=== PATIENT | male | born 1940 | race Caucasian/White ===

== ENCOUNTER 2020-09-02 17:10 | Inpatient (IN) ==
--- NOTE | 2020-09-02 18:29 | Emergency Department Note ---
HPI General Chief complaint: Shortness of Breath/Dyspnea Stated complaint: weakness, anxiety, SOB Time Seen by Provider: 09/02/20 18:28 Source: EMS Mode of arrival: EMS Limitations: no limitations History of Present Illness HPI Narrative: Narrative: This patient presents by EMS with complaint of left hip pain. He reports to EMS multiple complaints, however to myself he is complaining of having difficulty walking due to left hip pain. He reports a few days ago, or maybe even more, he was in the restroom and turned. When he pivoted he felt pain in his left hip and has had difficulty walking since then. He is unable to identify a specific area of discomfort, only that he has pain throughout his left hip with trying to bear weight. He does live at home. He does have a caregiver, however his caregiver has not been able to come to his home due to being ill herself. He denies any numbness, tingling or weakness. He reports no other trauma. The patient does have some chronic shortness of breath and wears 5 L of oxygen at baseline. Related Data Allergies Allergy/AdvReac Type Severity Reaction Status Date / Time No Known Drug Allergies Allergy Verified 09/02/20 17:18 Review of Systems ROS ROS Narrative: Narrative: Pertinent positives and negatives as noted in HPI. All other systems reviewed and negative. [facility] Narrative Patient History Narrative: Narrative: Medical/Surgical/Family History All Active Problems (Updated 09/02/20 @ 23:14 by Stephany Hull PA-C) Congestive heart failure (Acute) Hypoxia (Acute) Hip pain, left (Acute) Social History Smoking Status: Never smoker Exam Narrative Narrative: Narrative: Vital signs noted General: No distress. Nontoxic-appearing. Skin: Warm. Dry. No rash. Normal color. Eyes: PERRL. EOMI. Mouth: Membranes dry Neck: Good ROM. No meningeal signs. Supple. Cardiovascular: Irregular rate. Respiratory: Tachypnea. Patient speaking in 3-4 word sentences. Decreased lung sounds in the left base with crackles bilaterally. Gastrointestinal: Abdomen soft. No tenderness. No distention. Normal bowel sounds. No rebound tenderness or guarding. Back: Normal inspection. No midline tenderness. Extremities: No tenderness. No swelling. No erythema. 2+ edema to lower extremities. Good peripheral pulses x 4. Generalized tenderness palpation of the left hip. Exam is limited due to body habitus Neurological: No focal neurological deficits observed. Alert. Oriented x 3 General Limitations: no limitations Course Course Course Narrative: I went over the patient's list of complaints in triage and during my interview he reports his only concern is his left hip pain and not being able to get around. X-ray of the left hip and lumbar spine reviewed by myself to be without acute changes. Patient is assisted in an attempt to ambulate and is unable to get up from bedside due to being weak and developing shortness of breath. O2 saturati ons drop into the 70s despite being on 5 L of oxygen. At that point a work-up for shortness of breath is initiated and labs are ordered Chest x-ray is reviewed by myself to be concerning for left pleural effusion as well as scattered infiltrates and fluid overload. EKG shows a sinus rhythm at 87. QRS complexes are wide and at irregular intervals. Appears to be second-degree type II block. Right bundle branch block. No prior EKG for comparison. proBNP is elevated. No prior labs for comparison. Patient medicated with 40 mg IV Lasix. In order of sublingual nitro and Nitropaste is also ordered for CHF. Patient is discussed with the hospitalist service regarding admission for congestive heart failure with hypoxia I did speak with the patient's caregiver Lizzy Moon. Her number for contact is [phone]. Vital Signs Vital signs: Vital Signs Temperature 98.0 F 09/02/20 17:12 Pulse Rate 120 H 09/02/20 17:12 Respiratory Rate 20 09/02/20 17:12 Blood Pressure 125/73 09/02/20 17:12 Pulse Oximetry (%) 96 09/02/20 17:12 Temperature 98.0 F 09/02/20 17:12 Pulse Rate 102 H 09/02/20 22:21 Respiratory Rate 20 09/02/20 17:12 Blood Pressure 136/73 09/02/20 22:16 Pulse Oximetry (%) 94 09/02/20 22:21 [facility] MDM Narrative Medical decision making narrative: Narrative: Lab Data Result diagrams: 09/02/20 20:03 09/02/20 20:03 Labs: Lab Results 09/02/20 09/02/20 09/02/20 Range/Units 20:03 20:03 20:03 WBC 9.1 (4.5-11.0) K/mcL RBC 3.77 L (4.50-5.90) M/mcL Hgb 10.6 L (13.5-16.5) g/dL Hct 34.6 L (41.0-55.0) % MCV 91.8 (80.0-100.0) fL MCH 28.1 (26.0-34.0) pg MCHC 30.6 L (31.0-36.0) g/dL RDW 14.5 (11.5-14.5) % Plt Count 249 (140-440) K/mcL MPV 9.8 (7.4-10.4) fL Neut % (Auto) 68.1 (38.0-78.0) % Lymph % (Auto) 20.5 (15.0-49.0) % [place] % (Auto) 8.3 (1.0-12.0) % Eos % (Auto) 2.4 (0.0-7.0) % Baso % (Auto) 0.7 (0.0-2.0) % Lymph # (Auto) 1.86 (1.50-4.80) K/mcL [place] # (Auto) 0.75 (0.10-0.90) K/mcL Eos # (Auto) 0.22 (0.00-0.70) K/mcL Baso # (Auto) 0.06 (0.00-0.20) K/mcL Absolute Neutrophils 6.20 (1.80-8.00) K/mcL ABG Methemoglobin 0.3 L (0.4-1.5) % VBG pH 7.43 H (7.32-7.42) U VBG pCO2 47.8 (41.0-51.0) mmHg VBG pO2 46.3 H (25.0-40.0) mmHg VBG HCO3 30.7 H (24.0-28.0) mmol/L VBG Total CO2 32.2 H (25.0-29.0) mmol/L VBG O2 Saturation 78.5 H (40.0-70.0) % VBG Base Excess 6 H (-2-3) VBG Lactic Acid (0.5-2.0) mmol/L Carboxyhemoglobin 5.4 H (0.0-1.5) % THgb Total Hemoglobin 10.7 L (13.5-16.5) gm/Dl Sodium 140 (133-145) mmol/L Potassium 4.0 (3.3-5.1) mmol/L Chloride 103 (96-108) mmol/L Carbon Dioxide 29 (22-30) mmol/L Anion Gap 8.0 (8.0-16.0) BUN 14 (8-23) mg/dL Creatinine 0.8 (0.7-1.2) mg/dL GFR Calculation 83 Glucose 102 (70-105) mg/dL Calcium 8.9 (8.6-10.4) mg/dL Total Bilirubin 0.3 (0.1-1.0) mg/dL AST 13 (<40) U/L ALT 6 (<40) U/L Alkaline Phosphatase 73 (39-117) U/L NT-Pro-B Natriuret Pep (<450.0) pg/mL Total Protein 7.4 (5.9-8.4) gm/dL Albumin 2.7 L (3.2-5.2) gm/dL Globulin 4.7 H (2.2-3.7) gm/dL Albumin/Globulin Ratio 0.6 L (1.0-2.3) 09/02/20 09/02/20 Range/Units 20:03 20:29 WBC (4.5-11.0) K/mcL RBC (4.50-5.90) M/mcL Hgb (13.5-16.5) g/dL Hct (41.0-55.0) % MCV (80.0-100.0) fL MCH (26.0-34.0) pg MCHC (31.0-36.0) g/dL RDW (11.5-14.5) % Plt Count (140-440) K/mcL MPV (7.4-10.4) fL Neut % (Auto) (38.0-78.0) % Lymph % (Auto) (15.0-49.0) % [place] % (Auto) (1.0-12.0) % Eos % (Auto) (0.0-7.0) % Baso % (Auto) (0.0-2.0) % Lymph # (Auto) (1.50-4.80) K/mcL [place] # (Auto) (0.10-0.90) K/mcL Eos # (Auto) (0.00-0.70) K/mcL Baso # (Auto) (0.00-0.20) K/mcL Absolute Neutrophils (1.80-8.00) K/mcL ABG Methemoglobin (0.4-1.5) % VBG pH (7.32-7.42) U VBG pCO2 (41.0-51.0) mmHg VBG pO2 (25.0-40.0) mmHg VBG HCO3 (24.0-28.0) mmol/L VBG Total CO2 (25.0-29.0) mmol/L VBG O2 Saturation (40.0-70.0) % VBG Base Excess (-2-3) VBG Lactic Acid 0.6 (0.5-2.0) mmol/L Carboxyhemoglobin (0.0-1.5) % THgb Total Hemoglobin (13.5-16.5) gm/Dl Sodium (133-145) mmol/L Potassium (3.3-5.1) mmol/L Chloride (96-108) mmol/L Carbon Dioxide (22-30) mmol/L Anion Gap (8.0-16.0) BUN (8-23) mg/dL Creatinine (0.7-1.2) mg/dL GFR Calculation Glucose (70-105) mg/dL Calcium (8.6-10.4) mg/dL Total Bilirubin (0.1-1.0) mg/dL AST (<40) U/L ALT (<40) U/L Alkaline Phosphatase (39-117) U/L NT-Pro-B Natriuret Pep 1318.0 H (<450.0) pg/mL Total Protein (5.9-8.4) gm/dL Albumin (3.2-5.2) gm/dL Globulin (2.2-3.7) gm/dL Albumin/Globulin Ratio (1.0-2.3) ED POC Tests ED POC Tests: PAKO - SARS Antigen Negative CC TIME Critical Care Time Critical Care Time: Yes Total Critical Care Time: 60 Attestation: 60 minutes time separate from procedures spent interviewing the patient, examining, ordering labs and imaging, reviewing labs and imaging, reevaluating the patient, establishing care plan and consulting specialists in the care of this patient. Discharge Plan Patient/Caregiver Discharge Instructions Pt seen by BOBBIN PAINTER/PA only: No Clinical Impression: Congestive heart failure, Hypoxia, Hip pain, left Patient Disposition: Xfer As Outpt/Obs ([facility])
[2020-09-02] MEDS ORDERED: cefTRIAXone 2 GM in DEXTROSE 5% IN WATER 50 ML IV ONE (20:19)
[2020-09-02 20:23] LABS: ABG Methemoglobin 0.3 % (0.4-1.5); Total Hemoglobin 10.7 gm/Dl (13.5-16.5); VBG Base Excess 6 (-2-3); VBG HCO3 30.7 mmol/L (24.0-28.0); VBG Oxygen Saturation 78.5 % (40.0-70.0); VBG PCO2 47.8 mmHg (41.0-51.0); VBG PH 7.43 U (7.32-7.42); VBG PO2 46.3 mmHg (25.0-40.0); VBG Total CO2 32.2 mmol/L (25.0-29.0)
[2020-09-02 20:26] LABS: Basophils # (Auto) 0.06 K/mcL (0.00-0.20); Basophils % (Auto) 0.7 % (0.0-2.0); Eosinophils # (Auto) 0.22 K/mcL (0.00-0.70); Eosinophils % (Auto) 2.4 % (0.0-7.0); Hematocrit 34.6 % (41.0-55.0); Hemoglobin 10.6 g/dL (13.5-16.5); Lymphocytes # (Auto) 1.86 K/mcL (1.50-4.80); Lymphocytes % (Auto) 20.5 % (15.0-49.0); Mean Cell Volume 91.8 fL (80.0-100.0); Mean Corpuscular HGB Conc 30.6 g/dL (31.0-36.0); Mean Platelet Volume 9.8 fL (7.4-10.4); Monocytes # (Auto) 0.75 K/mcL (0.10-0.90); Monocytes % (Auto) 8.3 % (1.0-12.0); Neutrophils % (Auto) 68.1 % (38.0-78.0); Platelet Count 249 K/mcL (140-440); RBC 3.77 M/mcL (4.50-5.90); Red Cell Distribution Width 14.5 % (11.5-14.5); WBC 9.1 K/mcL (4.5-11.0)
[2020-09-02 20:54] LABS: ALT/SGPT 6 U/L (<40); AST/SGOT 13 U/L (<40); Albumin 2.7 gm/dL (3.2-5.2); Albumin/Globulin Ratio 0.6 (1.0-2.3); Alkaline Phosphatase 73 U/L (39-117); Bilirubin,Total 0.3 mg/dL (0.1-1.0); Blood Urea Nitrogen 14 mg/dL (8-23); Calcium 8.9 mg/dL (8.6-10.4); Carbon Dioxide 29 mmol/L (22-30); Chloride 103 mmol/L (96-108); Globulin 4.7 gm/dL (2.2-3.7); Glomerular Filtration Rate 83; Glucose 102 mg/dL (70-105)
[2020-09-02] MEDS ORDERED: IPRATROPIUM/ALBUTEROL 3 ML AMPUL.NEB NEB ONE (21:09)
[2020-09-02] MEDS ORDERED: NITROGLYCERIN 0.1 MG/HR PATCH TD ONE (21:30)
[2020-09-02] MEDS ORDERED: NITROGLYCERIN 0.4 MG TAB.SUBL SL ONE (21:30)
[2020-09-02] MEDS ORDERED: FUROSEMIDE 40 MG/4 ML VIAL IV ONE (21:32)
--- NOTE | 2020-09-02 21:48 | Emergency Department Note ---
ED Note Addendum Note Addendum: I evaluated and treated this patient in conjunction with the MICHAEL. I agree with their documented history, examination and medical decision making as documented separately. I also evaluated the patient in person with the following additional findings: At the time of my initial exam, the patient does admit he feels somewhat more short of breath than usual. He is able to speak in short sentences while on his usual supplemental oxygen via nasal cannula but does have significantly increased work of breathing with prolonged conversation. I discussed the plan for diuresis and admission and the patient is agreeable. EKG performed at 8:22 PM: Sinus rhythm with second-degree AV block, rate 87. Normal P wave morphology. Right bundle branch block. Normal T wave morphology. No ST segment deviation. Normal QTC duration. No old EKG immediately available for comparison. EKG is interpreted by me.
[2020-09-02] MEDS ORDERED: ONDANSETRON 4 MG/2 ML VIAL IV PRN (22:09)
[2020-09-02] MEDS ORDERED: hydrALAZINE 20 MG/ML VIAL IV PRN (22:09)
[2020-09-02] MEDS ORDERED: METOPROLOL TARTRATE 5 MG/5 ML VIAL IV PRN (22:09)
[2020-09-02] MEDS ORDERED: POTASSIUM CHLORIDE 40 MEQ in DEXTROSE 5% IN WATER 500 ML IV PRN (22:09)
[2020-09-02] MEDS ORDERED: BISACODYL 10 MG SUPP.RECT PR PRN (22:09)
[2020-09-02] MEDS ORDERED: POLYETHYLENE GLYCOL 3350 17 GM PACKET PO PRN (22:09)
[2020-09-02] MEDS ORDERED: MAGNESIUM SULFATE 2 GM/50 ML BAG IV PRN (22:09)
[2020-09-02] MEDS ORDERED: MELATONIN 3 MG TABLET PO PRN (22:09)
[2020-09-02] MEDS ORDERED: ACETAMINOPHEN 650 MG/65 ML BAG IV PRN (22:09)
[2020-09-02] MEDS ORDERED: ONDANSETRON 4 MG ODT TABLET SL PRN (22:09)
[2020-09-02] MEDS ORDERED: NITROGLYCERIN 0.4 MG TAB.SUBL SL PRN (22:09)
--- NOTE | 2020-09-02 22:13 | Internal Med History&Physical ---
HPI History of Present Illness Patient information: Note initiated : 09/02/20 at 10:13 pm Service Date, if different from initiated Date: [] Patient: Jose Alberto Henderson 80 y/o M admitted on for weakness, anxiety, SOB. Chief Complaint: SOB, hip pain History of present illness: Mr. 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 Over the last couple days he has noted increasing shortness of breath but denies fever chills. He has been laying in the bed for most of the last week. His caregiver has also been unable to provide help due to being sick. He presents to the ER with multiple complaints. Initial work-up was consistent with left-sided pleural effusion/right-sided chest infiltrate on chest imaging. Patient was started on diuretics/Nitropaste and antibiotics. Hospital service was consulted for evaluation and admission. At the time of my evaluation patient is alert and oriented. He is slightly anxious was able to provide history as above. Denies chest palpitation/diaphoresis/fever/productive cough/hemoptysis/weight loss. He denies sick contacts. Has felt miserable over the last few days due to hip pain and inability to ambulate, fix a meal for himself and feels dehydrated. Review of systems 10 point review system was performed and is negative except for ones discussed above PFSH PFSH All Active Problems (Updated 09/02/20 @ 23:14 by Stephany Hull PA-C) Congestive heart failure (Acute) Hypoxia (Acute) Hip pain, left (Acute) MEDS/ALLERGIES Home Medications and Allergies Home Medications Medication Instructions Recorded Confirmed Type allopurinol 200 mg PO DAILY 09/03/20 09/03/20 History doxazosin 4 mg PO DAILY 09/03/20 09/03/20 History gqtajkqunlx-qefdlozeb-znebengy 1 inh INHALATION DAILY 09/03/20 09/03/20 History [Trelegy Ellipta] furosemide 40 mg PO BID 09/03/20 09/03/20 History levofloxacin 250 mg PO DAILY 09/03/20 09/03/20 History potassium chloride 20 meq PO DAILY 09/03/20 09/03/20 History sitagliptin [Januvia] 100 mg PO DAILY 09/03/20 09/03/20 History theophylline 300 mg PO BID 09/03/20 09/03/20 History trazodone 50 mg PO QHS 09/03/20 09/03/20 History Allergies Allergy/AdvReac Type Severity Reaction Status Date / Time No Known Drug Allergies Allergy Verified 09/02/20 17:18 EXAM Constitutional Vitals: Temp Pulse Resp BP Pulse Ox 98.0 F 103 H 20 135/69 92 09/02/20 17:12 09/02/20 21:31 09/02/20 17:12 09/02/20 21:31 09/02/20 21:31 Anxious but alert and oriented Head normocephalic Oral cavity moist No ear nose discharge Eye movement symmetrical Neck supple no lymphadenopathy S1-S2 intermittently regular, prolonged AK interval Labored breathing, absent breath sounds left base, crackles Nondistended nontender abdomen Lower extremity no lymphedema, cyanosis clubbing or joint swelling, left hip pain on passive movement but no surrounding erythema swelling Skin no suspicious lesion Psych anxious but alert cooperative Neuro normal higher function, GCS 15 DATA Data Completed and Pending Labs: Labs from last 24 hours 09/02/20 09/02/20 09/02/20 20:29 20:03 20:03 WBC RBC Hgb Hct MCV MCH MCHC RDW Plt Count MPV Neut % (Auto) Lymph % (Auto) [place] % (Auto) Eos % (Auto) Baso % (Auto) Lymph # (Auto) [place] # (Auto) Eos # (Auto) Baso # (Auto) Absolute Neutrophils ABG Methemoglobin 0.3 L VBG pH 7.43 H VBG pCO2 47.8 VBG pO2 46.3 H VBG HCO3 30.7 H VBG Total CO2 32.2 H VBG O2 Saturation 78.5 H VBG Base Excess 6 H VBG Lactic Acid 0.6 Carboxyhemoglobin 5.4 H Total Hemoglobin 10.7 L Sodium Potassium Chloride Carbon Dioxide Anion Gap BUN Creatinine GFR Calculation Glucose Calcium Total Bilirubin AST ALT Alkaline Phosphatase NT-Pro-B Natriuret Pep 1318.0 H Total Protein Albumin Globulin Albumin/Globulin Ratio 09/02/20 09/02/20 20:03 20:03 WBC 9.1 RBC 3.77 L Hgb 10.6 L Hct 34.6 L MCV 91.8 MCH 28.1 MCHC 30.6 L RDW 14.5 Plt Count 249 MPV 9.8 Neut % (Auto) 68.1 Lymph % (Auto) 20.5 [place] % (Auto) 8.3 Eos % (Auto) 2.4 Baso % (Auto) 0.7 Lymph # (Auto) 1.86 [place] # (Auto) 0.75 Eos # (Auto) 0.22 Baso # (Auto) 0.06 Absolute Neutrophils 6.20 ABG Methemoglobin VBG pH VBG pCO2 VBG pO2 VBG HCO3 VBG Total CO2 VBG O2 Saturation VBG Base Excess VBG Lactic Acid Carboxyhemoglobin Total Hemoglobin Sodium 140 Potassium 4.0 Chloride 103 Carbon Dioxide 29 Anion Gap 8.0 BUN 14 Creatinine 0.8 GFR Calculation 83 Glucose 102 Calcium 8.9 Total Bilirubin 0.3 AST 13 ALT 6 Alkaline Phosphatase 73 NT-Pro-B Natriuret Pep Total Protein 7.4 Albumin 2.7 L Globulin 4.7 H Albumin/Globulin Ratio 0.6 L A/P Narrative A/P Narrative: * Acute decompensated heart failure-initiate diuresis, echocardiogram, obtain medication list based on patient's pharmacy. Optimize CHF management based on echo findings * Basilar chest infiltrates suspicious for pneumonia.Check procalcitonin. Sputum cultures. Hold antibiotics for now * Left-sided pleural effusion suspicious for malignancy along with hilar lesion on imaging. CT chest/ultrasound thoracentesis/cytology. * Suspicious hilar mass-CT chest * Acute on chronic hypoxic respiratory failure-underlying COPD. Acute decompensation secondary to heart failure. 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, outpatient orthopedics * DM type II-continue CC diet/sitagliptin * Anxiety disorder-restart home medications once medication is available * Prophylax Heparin Plan * Observation admit * Diuresis/echocardiogram/obtain home medication list * CT chest/ultrasound thoracentesis * Hold antibiotics * Pre-existing medical condition management home medications * PT OT/nutrition support * Discharge planning * Outpatient orthopedics follow-up on discharge Time Spent With Patient Time: Total time spent is greater than 50% in coordination of care (as documented) at patient's floor/unit and/or counseling patient:
[2020-09-02] MEDS ORDERED: traZODone HCL 50 MG TABLET PO PRN (22:50)
[2020-09-02] MEDS ORDERED: IOPAMIDOL 100 ML BOTTLE IV ONE ×2 (23:04)
[2020-09-03] MEDS ORDERED: ACETAMINOPHEN 325 MG TABLET PO ONE (02:08)
[2020-09-03] MEDS ORDERED: IPRATROPIUM/ALBUTEROL 3 ML AMPUL.NEB NEB ONE (02:08)
[2020-09-03] MEDS: ACETAMINOPHEN 325 MG TABLET PO PRN (02:09)
[2020-09-03] MEDS: IPRATROPIUM/ALBUTEROL 3 ML AMPUL.NEB NEB SCH ×7 (02:10→23:46)
--- NOTE | 2020-09-03 03:36 | XRay Report ---
CLINICAL INFORMATION: sob, hypoxia COMPARISON: 03/17/2011 plain film and chest CT 05/27/2014 FINDINGS: Mild cardiomegaly appreciated. Mediastinum is unremarkable. Left hilum is mildly enlarged. Known severe COPD changes noted. Large infiltrate is developing the right mid and lower lung. Moderate left pleural effusion with compressive atelectasis in the left inferior lingula and left lower lobe noted. The right lung vascular structure is distended the left lung fracture is normal. IMPRESSION: 1. Large infiltrate in the right mid/lower lung with small right pleural effusion. 2. Moderate left pleural effusion with compressive atelectasis in the inferior lingula and lower lobe 3. Known severe COPD. Patient may have underlying atypical CHF pattern. The right lung vessels appear moderately ingested, but in this case, there is no vascular redistribution to the left upper lobe because of the absence vessels secondary to bullous replacement of the left upper lobe parenchyma. Please correlate with other physical exam findings and BNP. 4. 3.7 cm region of adenopathy or mass left hilum. Consider chest CT Interpreted and Authenticated by: Christophe Kwan 09/03/20
--- NOTE | 2020-09-03 03:44 | XRay Report ---
CLINICAL INFORMATION: Back pain COMPARISON: 03/07/2013 plain films. FINDINGS: The lumbar spine is normal in curvature and alignment. No osseous abnormality. Mild L5-S1 degenerative disc disease appreciated. Marginal osteophytes are seen anteriorly at T11-T12 L2-3 L3-4. Mild degenerative facet disease L5-S1. No soft tissue abnormality. Small left pleural effusion is only noted - follow-up chest x-ray to be performed IMPRESSION: Degeneration - slight progression since 2012 Interpreted and Authenticated by: Christophe Kwan 09/03/20
--- NOTE | 2020-09-03 03:45 | XRay Report ---
CLINICAL INFORMATION: pain COMPARISON: AP pelvis 03/07/2013 FINDINGS: Right total hip prostheses anatomically aligned without loosening or infection. No osseous abnormality. Both SI and left hip joint is normal in width and alignment arthritic change. Soft tissues normal. IMPRESSION: Negative Interpreted and Authenticated by: Christophe Kwan 09/03/20
[2020-09-03] MEDS: 0.9 % SODIUM CHLORIDE 10 ML SYRINGE IV SCH ×3 (05:39→20:42)
[2020-09-03 06:58] LABS: Basophils # (Auto) 0.06 K/mcL (0.00-0.20); Basophils % (Auto) 0.7 % (0.0-2.0); Eosinophils # (Auto) 0.21 K/mcL (0.00-0.70); Eosinophils % (Auto) 2.6 % (0.0-7.0); Hematocrit 33.7 % (41.0-55.0); Hemoglobin 10.3 g/dL (13.5-16.5); Lymphocytes # (Auto) 2.48 K/mcL (1.50-4.80); Lymphocytes % (Auto) 30.7 % (15.0-49.0); Mean Cell Volume 91.3 fL (80.0-100.0); Mean Corpuscular HGB Conc 30.6 g/dL (31.0-36.0); Mean Platelet Volume 10.4 fL (7.4-10.4); Monocytes # (Auto) 0.72 K/mcL (0.10-0.90); Monocytes % (Auto) 8.9 % (1.0-12.0); Neutrophils % (Auto) 57.1 % (38.0-78.0); Platelet Count 261 K/mcL (140-440); RBC 3.69 M/mcL (4.50-5.90); Red Cell Distribution Width 14.5 % (11.5-14.5); WBC 8.1 K/mcL (4.5-11.0)
[2020-09-03 07:34] LABS: ALT/SGPT 7 U/L (<40); AST/SGOT 13 U/L (<40); Albumin 2.8 gm/dL (3.2-5.2); Albumin/Globulin Ratio 0.7 (1.0-2.3); Alkaline Phosphatase 70 U/L (39-117); Bilirubin,Direct < 0.2 mg/dL (0-0.3); Bilirubin,Total 0.2 mg/dL (0.1-1.0); Blood Urea Nitrogen 19 mg/dL (8-23); Calcium 8.5 mg/dL (8.6-10.4); Carbon Dioxide 34 mmol/L (22-30); Chloride 98 mmol/L (96-108); Globulin 4.3 gm/dL (2.2-3.7); Glomerular Filtration Rate 51; Glucose 113 mg/dL (70-105); Lactate Dehydrogenase 129 U/L (135-225); Phosphorous 2.9 mg/dL (2.5-4.5); Triglycerides 61 mg/dL (<150); Uric Acid 6.4 mg/dL (2.5-8.0)
[2020-09-03] MEDS: BUDESONIDE 0.5 MG/2 ML AMPUL.NEB NEB SCH ×2 (08:08→19:49)
[2020-09-03] MEDS: DOCUSATE SODIUM 100 MG CAPSULE PO SCH ×2 (08:39→20:40)
[2020-09-03] MEDS: FUROSEMIDE 40 MG/4 ML VIAL IV SCH ×2 (08:39→09:02)
[2020-09-03] MEDS: HEPARIN 5,000 UNIT/ML VIAL SQ SCH ×2 (08:39→20:41)
[2020-09-03] MEDS: MULTIVIT,THER IRON,CA,FA & MIN 1 TABLET PO SCH (08:40)
--- NOTE | 2020-09-03 11:11 | Internal Med Progress Note ---
SUBJECTIVE Subjective Patient information: Note initiated : 09/03/20 at 11:06 am Service Date, if different from initiated Date: [] Patient: Jose Alberto Henderson 80 y/o M admitted on 09/02/20 for weakness, anxiety, SOB. Chief Complaint: [] Interval history: Mr. 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 Over the last couple days he has noted increasing shortness of breath but denies fever chills. He has been laying in the bed for most of the last week. His caregiver has also been unable to provide help due to being sick. He presents to the ER with multiple complaints. Initial work-up was consistent with left-sided pleural effusion/right-sided chest infiltrate on chest imaging. Patient was started on diuretics/Nitropaste and antibiotics. Hospital service was consulted for evaluation and admission. At the time of my evaluation patient is alert and oriented. He is slightly anxious was able to provide history as above. Denies chest palpitation/diaphoresis/fever/productive cough/hemoptysis/weight loss. He denies sick contacts. Has felt miserable over the last few days due to hip pain and inability to ambulate, fix a meal for himself and feels dehydrated. 09/03-patient doing better since previous day. Improved shortness of breath. Currently on [address] chest/ultrasound thoracentesis today. Echocardiogram pending. White count 8.1, creatinine up to 1.3 from 0.8. Constitutional Vitals: Vital Signs Temp Pulse Resp BP Pulse Ox 97.8 F 95 H 16 102/54 97 09/03/20 08:01 09/03/20 09:05 09/03/20 10:00 09/03/20 10:00 09/03/20 10:00 Period Temp Pulse Resp BP Sys/Jung Pulse Ox Last 24 Hr 97.8 F-98.8 F 62-125 16-30 89-150/42-97 90-98 Intake and Output 09/02/20 09/03/20 09/03/20 21:59 05:59 13:59 Intake Total 425 Output Total 951 Balance -526 Weight 88.451 kg 83.28 kg remains anxious No telemetry events Minimally labored breathing on 4 L oxygen Nondistended abdomen Intake & Output: Intake & Output 09/02/20 09/03/20 09/03/20 21:59 05:59 13:59 Intake Total 425 Output Total 951 Balance -526 Weight 88.451 kg 83.28 kg Intake: Oral 425 Output: Void Amount 950 # of times incontinent of urine 1 Other: Meal snack Breakfast Percent of Meal Consumed 75% 90 Feeding Ability Assist with Tray Set Up Independent Urine Appearance Clear Urine Color Pale OBJ DATA Labs CBC & Chem 7: 09/03/20 05:19 09/03/20 05:19 Labs: Abnormal Lab Results 09/03/20 09/03/20 09/02/20 05:19 05:19 20:03 RBC 3.69 L Hgb 10.3 L Hct 33.7 L MCHC 30.6 L ABG Methemoglobin VBG pH VBG pO2 VBG HCO3 VBG Total CO2 VBG O2 Saturation VBG Base Excess Carboxyhemoglobin Total Hemoglobin Carbon Dioxide 34 H Anion Gap 5.0 L Creatinine 1.3 H Glucose 113 H Calcium 8.5 L Lactate Dehydrogenase 129 L NT-Pro-B Natriuret Pep 1318.0 H Albumin 2.8 L Globulin 4.3 H Albumin/Globulin Ratio 0.7 L 09/02/20 09/02/20 09/02/20 20:03 20:03 20:03 RBC 3.77 L Hgb 10.6 L Hct 34.6 L MCHC 30.6 L ABG Methemoglobin 0.3 L VBG pH 7.43 H VBG pO2 46.3 H VBG HCO3 30.7 H VBG Total CO2 32.2 H VBG O2 Saturation 78.5 H VBG Base Excess 6 H Carboxyhemoglobin 5.4 H Total Hemoglobin 10.7 L Carbon Dioxide Anion Gap Creatinine Glucose Calcium Lactate Dehydrogenase NT-Pro-B Natriuret Pep Albumin 2.7 L Globulin 4.7 H Albumin/Globulin Ratio 0.6 L Meds: Medications Acetaminophen (Acetaminophen 325 Mg Tablet) 650 mg PO Q4-6HP PRN; Protocol PRN Reason: Per Pain Protocol/Fever > 101 Last Admin: 09/03/20 02:09 Dose: 650 mg Documented by: Albuterol/Ipratropium (Ipratropium/Albuterol 3 Ml Ampul.Neb) 3 ml NEB Q4HRT [facility] Last Admin: 09/03/20 08:08 Dose: 3 ml Documented by: Allopurinol (Allopurinol 100 Mg Tablet) 200 mg PO DAILY [facility] Bisacodyl (Bisacodyl 10 Mg Supp.Rect) 10 mg MO Q2-3DAYS PRN PRN Reason: Constipation Budesonide (Budesonide 0.5 Mg/2 Ml Ampul.Neb) 0.5 mg NEB Q12 [facility] Last Admin: 09/03/20 08:08 Dose: 0.5 mg Documented by: Docusate Sodium (Docusate Sodium 100 Mg Capsule) 100 mg PO BID [facility] Last Admin: 09/03/20 08:39 Dose: 100 mg Documented by: Doxazosin Mesylate (Doxazosin 4 Mg Tablet) 4 mg PO DAILY [facility] Furosemide (Furosemide 40 Mg Tablet) 40 mg PO BID [facility] Heparin Sodium (Porcine) (Heparin 5,000 Unit/Ml Vial) 5,000 unit SQ Q12 [facility] Last Admin: 09/03/20 08:39 Dose: 5,000 unit Documented by: Hydralazine HCl (Hydralazine 20 Mg/Ml Vial) 10 mg IV Q4-6HP PRN PRN Reason: Hypertension Potassium Chloride 40 meq/ (Dextrose) 520 mls @ 130 mls/hr IV UD PRN PRN Reason: K+ = or < 3.5 Acetaminophen (Ofirmev) 650 mg in 65 mls @ 130 mls/hr IV Q6HP PRN; Protocol PRN Reason: Per Pain Protocol/Fever > 101 Magnesium Sulfate (Magnesium Sulfate) 2 gm in 50 mls @ 50 mls/hr IV UD PRN PRN Reason: MG = or < 1.7 Iron Carb/Multivit/[place]/Folic Acid (Multivit,Ther Iron,Ca,Fa & Min 1 Tablet) 1 tab PO DAILY [facility] Last Admin: 09/03/20 08:40 Dose: 1 tab Documented by: Melatonin (Melatonin 3 Mg Tablet) 3 mg PO HSP PRN PRN Reason: Insomnia Metoprolol Tartrate (Metoprolol Tartrate 5 Mg/5 Ml Vial) 5 mg IV Q5M PRN PRN Reason: Heart Rate > 140 bpm Nitroglycerin (Nitroglycerin 0.4 Mg Tab.Subl) 0.4 mg SL Q5M PRN PRN Reason: Chest Pain Non-Formulary Medication (Xsjhzypyrke-Tvxptupjv-Uilgbrcw [Trelegy Ellipta]) 1 inh INHALATION DAILY [facility] Ondansetron HCl (Ondansetron 4 Mg Odt Tablet) 4 mg SL Q4-6HP PRN; Protocol PRN Reason: Nausea And Vomiting Ondansetron HCl (Ondansetron 4 Mg/2 Ml Vial) 4 mg IV Q4-6HP PRN; Protocol PRN Reason: Nausea And Vomiting Polyethylene Glycol (Polyethylene Glycol 3350 17 Gm Packet) 17 gm PO DAILYP PRN PRN Reason: Constipation Potassium Chloride (Potassium Chloride 10 Meq Tablet) 20 meq PO DAILY [facility] Senna/Docusate Sodium (Sennosides/Docusate Sodium 1 Tab Tablet) 1 tab PO HS [facility] Sitagliptin Phosphate (Sitagliptin 100 Mg Tablet) 100 mg PO DAILY [facility] Sodium Chloride (0.9 % Sodium Chloride 10 Ml Syringe) 10 ml IV Q8 [facility] Last Admin: 09/03/20 05:39 Dose: 10 ml Documented by: Theophylline (Theophylline Anhydrous 300 Mg Tab.Er.12h) 300 mg PO BID [facility] Trazodone HCl (Trazodone Hcl 50 Mg Tablet) 50 mg PO HSP PRN PRN Reason: Insomnia Trazodone HCl (Trazodone Hcl 50 Mg Tablet) 50 mg PO QHS [facility] ABG Interpretation ABG results: 09/02/20 20:03 ABG Methemoglobin 0.3 L VBG pH 7.43 H VBG pCO2 47.8 VBG pO2 46.3 H VBG HCO3 30.7 H VBG Total CO2 32.2 H VBG O2 Saturation 78.5 H VBG Base Excess 6 H A/P Narrative A/P Narrative: * Acute decompensated heart failure-responding well to diuretics. However increasing creatinine. Lower diuretic dose * Basilar chest infiltrates suspicious for pneumonia. CT chest today. Antibiotics on hold * Left-sided pleural effusion suspicious for malignancy along with hilar lesion on imaging. CT chest/ultrasound thoracentesis/cytology. * Suspicious hilar mass-CT chest * Acute on chronic hypoxic respiratory failure-underlying COPD. Continue pulmonary toilet/bronchodilators * Degenerative joint disease with left hip pain, outpatient orthopedics consult on discharge * DM type II-continue CC diet/sitagliptin * Anxiety disorder-restart home medications once medication is available * Prophylax Heparin Plan * Await CT chest/ultrasound thoracentesis//echocardiogram * CT chest/ultrasound thoracentesis * Pre-existing medical condition management on home medications * PT OT/nutrition support * Outpatient orthopedics follow-up on discharge for degenerative hip changes Time Spent With Patient Time: Total time spent is greater than 50% in coordination of care (as docum ented) at patient's floor/unit and/or counseling patient: QUALITY VTE Deep Vein Thrombosis/Pulmonary Embolism Present on Admission: No
[2020-09-03] MEDS ORDERED: FUROSEMIDE 40 MG TABLET PO ONE (12:53)
--- NOTE | 2020-09-03 13:02 | Ultrasound Report ---
CLINICAL INFORMATION: Evaluate fluid volume for thoracentesis. COMPARISON: None. FINDINGS: Moderate/large left and minimal right pleural effusion appreciated IMPRESSION: Moderate/large left and minimal right pleural effusion. Interpreted and Authenticated by: Christophe Kwan 09/03/20
[2020-09-03] MEDS: ALLOPURINOL 100 MG TABLET PO SCH (13:18)
[2020-09-03] MEDS: DOXAZOSIN 4 MG TABLET PO SCH (13:18)
[2020-09-03] MEDS: sitaGLIPtin 100 MG TABLET PO SCH (13:25)
[2020-09-03] MEDS: POTASSIUM CHLORIDE 10 MEQ TABLET PO SCH (13:26)
--- NOTE | 2020-09-03 13:36 | Cat Scan Report ---
CLINICAL INFORMATION: Possible left hilar mass or pleural effusion COMPARISON: Chest CT 05/27/2014. TECHNIQUE: 80 cc of Isovue-370 were injected intravenously, and 25 seconds later, 0.625 mm helical slices were obtained from the lung apices through the bases. Following reconstruction, 2.5 mm sagittal, coronal and axial reformations were processed and reviewed at lung, mediastinal and bone windows. 7 mm axial MIPS were also obtained to optimize pulmonary nodule detection. The exam was performed using radiation dose optimization techniques including, but not limited to, automated exposure control, adjustment of the mA and/or kV according to patient size and use of iterative reconstruction technique. FINDINGS: Pulmonary parenchymal windows show severe centrilobular emphysematous featuring chronic bronchitis with elevated lung volumes and wall thickening/dilatation of bronchi. There is also extensive bullous disease with bullous replacement of the entire upper lobe parenchyma bilaterally and multiple bullae within the lower lobes and right middle lobes. Complete chronic cicitration atelectasis in the lingula is again seen. Moderate patchy alveolar infiltrate in the posterior segment of the right upper lobe. A 2.4 x 1 cm sheet like stellate pleural-based density in the lateral right upper lobe is almost certainly inflammatory. No evidence of left hilar mass. There is subsegmental atelectasis in both inferior lower lobes. Moderate left and [id number] right pleural effusions appreciated The mediastinal windows show the heart is normal in size with scattered calcific plaque in the coronary arteries. Central pulmonary arteries mildly enlarged patible with pulmonary hypertension related to COPD. Thoracic aorta is atherosclerotic plaque but is normal diameter. An 18 mm enlarged precarinal lymph node is almost certainly due to benign reactive adenopathy. No other regions of adenopathy. The esophagus is grossly normal. The thyroid is diminutive, but otherwise normal. Bones and soft tissues the chest wall show no abnormality. 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 Aortic normal diameter. Visualized kidneys and adrenal glands spleen and liver are normal IMPRESSION: 1. No evidence of left hilar mass. 2. Severe centrilobular emphysema 3. Moderate patchy infiltrate in the posterior right upper lobe - likely pneumonia. 4. Small/ moderate right and moderate left pleural effusions 5. Chronic cicitration atelectasis of the lingula - stable 6. Mild enlargement central pulmonary arteries compatible pulmonary hypertension related to COPD. 7. 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 8. Diminutive thyroid. Please correlate with TSH to ensure the absence of hypothyroidism Interpreted and Authenticated by: Christophe Kwan 09/03/20
[2020-09-03] MEDS: Fluticasone-Umeclidin-Vilanter [Trelegy Ellipta] Inhaler INH SCH (18:15)
[2020-09-03] MEDS: FUROSEMIDE 40 MG TABLET PO SCH (20:40)
[2020-09-03] MEDS: THEOPHYLLINE ANHYDROUS 100 MG TAB.SR.12H PO SCH (20:42)
[2020-09-03] MEDS ORDERED: SENNOSIDES/DOCUSATE SODIUM 1 TAB TABLET PO SCH (21:00)
[2020-09-03] MEDS ORDERED: traZODone HCL 50 MG TABLET PO SCH (21:00)
[2020-09-04] MEDS: ACETAMINOPHEN 325 MG TABLET PO PRN ×2 (03:16→13:48)
[2020-09-04] MEDS: IPRATROPIUM/ALBUTEROL 3 ML AMPUL.NEB NEB SCH ×3 (03:19→11:30)
[2020-09-04 06:58] LABS: Basophils # (Auto) 0.05 K/mcL (0.00-0.20); Basophils % (Auto) 0.6 % (0.0-2.0); Eosinophils # (Auto) 0.45 K/mcL (0.00-0.70); Eosinophils % (Auto) 5.4 % (0.0-7.0); Hematocrit 34.5 % (41.0-55.0); Hemoglobin 10.4 g/dL (13.5-16.5); Mean Cell Volume 92.7 fL (80.0-100.0); Mean Corpuscular HGB Conc 30.1 g/dL (31.0-36.0); Mean Platelet Volume 10.4 fL (7.4-10.4); Monocytes # (Auto) 0.69 K/mcL (0.10-0.90); Monocytes % (Auto) 8.2 % (1.0-12.0); Neutrophils % (Auto) 60.8 % (38.0-78.0); Platelet Count 251 K/mcL (140-440); RBC 3.72 M/mcL (4.50-5.90); Red Cell Distribution Width 14.6 % (11.5-14.5); WBC 8.4 K/mcL (4.5-11.0)
[2020-09-04] MEDS: BUDESONIDE 0.5 MG/2 ML AMPUL.NEB NEB SCH (07:24)
[2020-09-04 07:27] LABS: ALT/SGPT 7 U/L (<40); AST/SGOT 14 U/L (<40); Albumin 2.5 gm/dL (3.2-5.2); Albumin/Globulin Ratio 0.6 (1.0-2.3); Alkaline Phosphatase 65 U/L (39-117); Bilirubin,Direct < 0.2 mg/dL (0-0.3); Bilirubin,Total 0.2 mg/dL (0.1-1.0); Blood Urea Nitrogen 24 mg/dL (8-23); Calcium 8.2 mg/dL (8.6-10.4); Carbon Dioxide 31 mmol/L (22-30); Chloride 97 mmol/L (96-108); Globulin 4.3 gm/dL (2.2-3.7); Glomerular Filtration Rate 62; Glucose 96 mg/dL (70-105); Lactate Dehydrogenase 136 U/L (135-225); Phosphorous 2.9 mg/dL (2.5-4.5); Triglycerides 49 mg/dL (<150); Uric Acid 6.7 mg/dL (2.5-8.0)
[2020-09-04] MEDS: HEPARIN 5,000 UNIT/ML VIAL SQ SCH ×2 (07:45→21:13)
[2020-09-04] MEDS: POTASSIUM CHLORIDE 10 MEQ TABLET PO SCH (07:45)
[2020-09-04] MEDS: DOXAZOSIN 4 MG TABLET PO SCH (07:49)
[2020-09-04] MEDS: sitaGLIPtin 100 MG TABLET PO SCH (07:49)
[2020-09-04] MEDS: THEOPHYLLINE ANHYDROUS 100 MG TAB.SR.12H PO SCH ×2 (07:49→21:10)
[2020-09-04] MEDS: DOCUSATE SODIUM 100 MG CAPSULE PO SCH ×2 (07:49→21:13)
[2020-09-04] MEDS: FUROSEMIDE 40 MG TABLET PO SCH ×2 (07:49→17:34)
[2020-09-04] MEDS: ALLOPURINOL 100 MG TABLET PO SCH (07:50)
[2020-09-04] MEDS: MULTIVIT,THER IRON,CA,FA & MIN 1 TABLET PO SCH (07:50)
[2020-09-04] MEDS: 0.9 % SODIUM CHLORIDE 10 ML SYRINGE IV SCH ×3 (07:51→21:13)
[2020-09-04] MEDS: Fluticasone-Umeclidin-Vilanter [Trelegy Ellipta] Inhaler INH SCH (07:51)
[2020-09-04] MEDS ORDERED: POTASSIUM CHLORIDE 10 MEQ TABLET PO SCH (08:00)
[2020-09-04] MEDS ORDERED: sitaGLIPtin 100 MG TABLET PO SCH (09:00)
[2020-09-04] MEDS ORDERED: BUDESONIDE 0.5 MG/2 ML AMPUL.NEB NEB PRN (09:00)
[2020-09-04] MEDS ORDERED: ALLOPURINOL 100 MG TABLET PO SCH (09:00)
[2020-09-04] MEDS ORDERED: DOXAZOSIN 4 MG TABLET PO SCH (09:00)
[2020-09-04] MEDS ORDERED: ONDANSETRON 4 MG ODT TABLET SL PRN (12:42)
[2020-09-04] MEDS ORDERED: cefTRIAXone 2 GM in DEXTROSE 5% IN WATER 50 ML IV ONE (12:42)
[2020-09-04] MEDS ORDERED: traZODone HCL 50 MG TABLET PO PRN (12:42)
[2020-09-04] MEDS ORDERED: ACETAMINOPHEN 650 MG/65 ML BAG IV PRN (12:42)
[2020-09-04] MEDS ORDERED: MAGNESIUM SULFATE 2 GM/50 ML BAG IV PRN (12:42)
[2020-09-04] MEDS ORDERED: ONDANSETRON 4 MG/2 ML VIAL IV PRN (12:42)
[2020-09-04] MEDS ORDERED: METOPROLOL TARTRATE 5 MG/5 ML VIAL IV PRN (12:42)
[2020-09-04] MEDS ORDERED: POLYETHYLENE GLYCOL 3350 17 GM PACKET PO PRN (12:42)
[2020-09-04] MEDS ORDERED: hydrALAZINE 20 MG/ML VIAL IV PRN (12:42)
[2020-09-04] MEDS ORDERED: BISACODYL 10 MG SUPP.RECT PR PRN (12:42)
[2020-09-04] MEDS ORDERED: MELATONIN 3 MG TABLET PO PRN (12:42)
[2020-09-04] MEDS ORDERED: POTASSIUM CHLORIDE 40 MEQ in DEXTROSE 5% IN WATER 500 ML IV PRN (12:42)
[2020-09-04] MEDS ORDERED: NITROGLYCERIN 0.4 MG TAB.SUBL SL PRN (12:42)
[2020-09-04] MEDS ORDERED: IOPAMIDOL 100 ML BOTTLE IV ONE ×2 (12:42)
[2020-09-04] MEDS ORDERED: IPRATROPIUM/ALBUTEROL 3 ML AMPUL.NEB NEB SCH (15:00)
[2020-09-04] MEDS ORDERED: BUDESONIDE 0.5 MG/2 ML AMPUL.NEB NEB SCH (21:00)
[2020-09-04] MEDS: SENNOSIDES/DOCUSATE SODIUM 1 TAB TABLET PO SCH (21:10)
[2020-09-04] MEDS: traZODone HCL 50 MG TABLET PO SCH (21:12)
[2020-09-05] MEDS: 0.9 % SODIUM CHLORIDE 10 ML SYRINGE IV SCH ×3 (06:18→22:00)
[2020-09-05] MEDS: ACETAMINOPHEN 325 MG TABLET PO PRN (06:49)
[2020-09-05 07:22] LABS: Basophils # (Auto) 0.06 K/mcL (0.00-0.20); Basophils % (Auto) 0.8 % (0.0-2.0); Eosinophils # (Auto) 0.41 K/mcL (0.00-0.70); Eosinophils % (Auto) 5.3 % (0.0-7.0); Hematocrit 34.1 % (41.0-55.0); Hemoglobin 10.6 g/dL (13.5-16.5); Lymphocytes # (Auto) 2.01 K/mcL (1.50-4.80); Lymphocytes % (Auto) 26.2 % (15.0-49.0); Mean Cell Volume 91.4 fL (80.0-100.0); Mean Corpuscular HGB Conc 31.1 g/dL (31.0-36.0); Mean Platelet Volume 10.4 fL (7.4-10.4); Monocytes # (Auto) 0.61 K/mcL (0.10-0.90); Neutrophils % (Auto) 59.7 % (38.0-78.0); Platelet Count 257 K/mcL (140-440); RBC 3.73 M/mcL (4.50-5.90); Red Cell Distribution Width 14.6 % (11.5-14.5); WBC 7.7 K/mcL (4.5-11.0)
[2020-09-05 08:06] LABS: ALT/SGPT 9 U/L (<40); AST/SGOT 17 U/L (<40); Albumin 2.9 gm/dL (3.2-5.2); Albumin/Globulin Ratio 0.7 (1.0-2.3); Alkaline Phosphatase 71 U/L (39-117); Bilirubin,Direct < 0.2 mg/dL (0-0.3); Bilirubin,Total 0.2 mg/dL (0.1-1.0); Blood Urea Nitrogen 19 mg/dL (8-23); Calcium 8.3 mg/dL (8.6-10.4); Carbon Dioxide 33 mmol/L (22-30); Chloride 96 mmol/L (96-108); Globulin 4.2 gm/dL (2.2-3.7); Glomerular Filtration Rate 79; Glucose 89 mg/dL (70-105); Lactate Dehydrogenase 173 U/L (135-225); Phosphorous 2.2 mg/dL (2.5-4.5); Triglycerides 56 mg/dL (<150); Uric Acid 6.7 mg/dL (2.5-8.0)
[2020-09-05] MEDS: Fluticasone-Umeclidin-Vilanter [Trelegy Ellipta] Inhaler INH SCH (10:39)
[2020-09-05] MEDS: DOCUSATE SODIUM 100 MG CAPSULE PO SCH ×2 (10:42→21:52)
[2020-09-05] MEDS: POTASSIUM CHLORIDE 10 MEQ TABLET PO SCH (10:47)
[2020-09-05] MEDS: FUROSEMIDE 40 MG TABLET PO SCH ×2 (10:47→15:47)
[2020-09-05] MEDS: DOXAZOSIN 4 MG TABLET PO SCH (10:47)
[2020-09-05] MEDS: sitaGLIPtin 100 MG TABLET PO SCH (10:47)
[2020-09-05] MEDS: ALLOPURINOL 100 MG TABLET PO SCH (10:48)
[2020-09-05] MEDS: MULTIVIT,THER IRON,CA,FA & MIN 1 TABLET PO SCH (10:48)
[2020-09-05] MEDS: THEOPHYLLINE ANHYDROUS 100 MG TAB.SR.12H PO SCH ×2 (10:50→21:56)
[2020-09-05] MEDS: HEPARIN 5,000 UNIT/ML VIAL SQ SCH ×2 (10:51→21:50)
--- NOTE | 2020-09-05 13:10 | Internal Med Progress Note ---
SUBJECTIVE Subjective Patient information: Note initiated : 09/04/20 at 1:10 pm Service Date, if different from initiated Date: [] Patient: Jose Alberto Henderson 80 y/o M admitted on 09/02/20 for weakness, anxiety, SOB. Chief Complaint: [] Interval history: Mr. 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 Over the last couple days he has noted increasing shortness of breath but denies fever chills. He has been laying in the bed for most of the last week. His caregiver has also been unable to provide help due to being sick. He presents to the ER with multiple complaints. Initial work-up was consistent with left-sided pleural effusion/right-sided chest infiltrate on chest imaging. Patient was started on diuretics/Nitropaste and antibiotics. Hospital service was consulted for evaluation and admission. At the time of my evaluation patient is alert and oriented. He is slightly anxious was able to provide history as above. Denies chest palpitation/diaphoresis/fever/productive cough/hemoptysis/weight loss. He denies sick contacts. Has felt miserable over the last few days due to hip pain and inability to ambulate, fix a meal for himself and feels dehydrated. 09/03-patient doing better since previous day. Improved shortness of breath. Currently on [address] chest/ultrasound thoracentesis today. Echocardiogram pending. White count 8.1, creatinine up to 1.3 from 0.8. 09/04- Patient doing a lot better. Stable hemodynamics and labs. Improving hypoxia now on fibers oxygen. Refused thoracentesis. Diuresing well. On antibiotic coverage. Echocardiogram ordered. Continue PT OT/transition to medical floor Constitutional Vitals: Vital Signs Temp Pulse Resp BP Pulse Ox 98 F 85 15 133/65 97 09/05/20 11:51 09/05/20 11:51 09/05/20 11:51 09/05/20 11:51 09/05/20 11:51 Period Temp Pulse Resp BP Sys/Jung Pulse Ox Last 24 Hr 97.5 F-98.5 F 78-119 15-24 96-147/52-71 90-97 Intake and Output 09/04/20 09/05/20 09/05/20 21:59 05:59 13:59 Intake Total 970 480 880 Output Total 825 600 380 Balance 145 -120 500 Weight 85.094 kg alert oriented Nonlabored breathing currently on 5 L oxygen Nondistended abdomen No anxiety Intake & Output: Intake & Output 09/04/20 09/05/20 09/05/20 21:59 05:59 13:59 Intake Total 970 480 880 Output Total 825 600 380 Balance 145 -120 500 Weight 85.094 kg Intake: IV 50 Rocephin 2 gm In Dextrose 5% in 50 Water 50 ml @ 100 mls/hr IV ONCE ONE Rx#:[id number] Oral 920 480 880 Output: Void Amount 825 600 380 Other: Meal Dinner Breakfast Percent of Meal Consumed 75% 100% Urine Appearance Clear Clear Clear Urine Color Straw Straw Bright Yellow Urine Odor Normal Stool Size Large Stool Color Brown Stool Consistency Soft # Voids 200 OBJ DATA Labs CBC & Chem 7: 09/06/20 05:12 09/06/20 05:12 Labs: Abnormal Lab Results 09/05/20 09/05/20 09/04/20 06:08 06:08 04:45 RBC 3.73 L Hgb 10.6 L Hct 34.1 L MCHC RDW 14.6 H ABG Methemoglobin VBG pH VBG pO2 VBG HCO3 VBG Total CO2 VBG O2 Saturation VBG Base Excess Carboxyhemoglobin Total Hemoglobin Sodium 132 L Carbon Dioxide 33 H 31 H Anion Gap 3.0 L 5.0 L BUN 24 H Creatinine Glucose Calcium 8.3 L 8.2 L Phosphorus 2.2 L Lactate Dehydrogenase NT-Pro-B Natriuret Pep Albumin 2.9 L 2.5 L Globulin 4.2 H 4.3 H Albumin/Globulin Ratio 0.7 L 0.6 L 09/04/20 09/03/20 09/03/20 04:45 05:19 05:19 RBC 3.72 L 3.69 L Hgb 10.4 L 10.3 L Hct 34.5 L 33.7 L MCHC 30.1 L 30.6 L RDW 14.6 H ABG Methemoglobin VBG pH VBG pO2 VBG HCO3 VBG Total CO2 VBG O2 Saturation VBG Base Excess Carboxyhemoglobin Total Hemoglobin Sodium Carbon Dioxide 34 H Anion Gap 5.0 L BUN Creatinine 1.3 H Glucose 113 H Calcium 8.5 L Phosphorus Lactate Dehydrogenase 129 L NT-Pro-B Natriuret Pep Albumin 2.8 L Globulin 4.3 H Albumin/Globulin Ratio 0.7 L 09/02/20 09/02/20 09/02/20 20:03 20:03 20:03 RBC Hgb Hct MCHC RDW ABG Methemoglobin 0.3 L VBG pH 7.43 H VBG pO2 46.3 H VBG HCO3 30.7 H VBG Total CO2 32.2 H VBG O2 Saturation 78.5 H VBG Base Excess 6 H Carboxyhemoglobin 5.4 H Total Hemoglobin 10.7 L Sodium Carbon Dioxide Anion Gap BUN Creatinine Glucose Calcium Phosphorus Lactate Dehydrogenase NT-Pro-B Natriuret Pep 1318.0 H Albumin 2.7 L Globulin 4.7 H Albumin/Globulin Ratio 0.6 L 09/02/20 20:03 RBC 3.77 L Hgb 10.6 L Hct 34.6 L MCHC 30.6 L RDW ABG Methemoglobin VBG pH VBG pO2 VBG HCO3 VBG Total CO2 VBG O2 Saturation VBG Base Excess Carboxyhemoglobin Total Hemoglobin Sodium Carbon Dioxide Anion Gap BUN Creatinine Glucose Calcium Phosphorus Lactate Dehydrogenase NT-Pro-B Natriuret Pep Albumin Globulin Albumin/Globulin Ratio Meds: Medications Acetaminophen (Acetaminophen 325 Mg Tablet) 650 mg PO Q4-6HP PRN; Protocol PRN Reason: Per Pain Protocol/Fever > 101 Last Admin: 09/05/20 06:49 Dose: 650 mg Documented by: Albuterol/Ipratropium (Ipratropium/Albuterol 3 Ml Ampul.Neb) 3 ml NEB Q4HP PRN PRN Reason: wheezing Allopurinol (Allopurinol 100 Mg Tablet) 200 mg PO DAILY [facility] Last Admin: 09/05/20 10:48 Dose: 200 mg Documented by: Bisacodyl (Bisacodyl 10 Mg Supp.Rect) 10 mg NV Q2-3DAYS PRN PRN Reason: Constipation Budesonide (Budesonide 0.5 Mg/2 Ml Ampul.Neb) 0.5 mg NEB Q12 PRN PRN Reason: Wheezing Docusate Sodium (Docusate Sodium 100 Mg Capsule) 100 mg PO BID [facility] Last Admin: 09/05/20 10:42 Dose: Not Given Documented by: Doxazosin Mesylate (Doxazosin 4 Mg Tablet) 4 mg PO DAILY [facility] Last Admin: 09/05/20 10:47 Dose: 4 mg Documented by: Furosemide (Furosemide 40 Mg Tablet) 40 mg PO BIDD [facility] Last Admin: 09/05/20 10:47 Dose: 40 mg Documented by: Heparin Sodium (Porcine) (Heparin 5,000 Unit/Ml Vial) 5,000 unit SQ Q12 [facility] Last Admin: 09/05/20 10:51 Dose: 5,000 unit Documented by: Hydralazine HCl (Hydralazine 20 Mg/Ml Vial) 10 mg IV Q4-6HP PRN PRN Reason: Hypertension Acetaminophen (Ofirmev) 650 mg in 65 mls @ 130 mls/hr IV Q6HP PRN; Protocol PRN Reason: Per Pain Protocol/Fever > 101 Magnesium Sulfate (Magnesium Sulfate) 2 gm in 50 mls @ 50 mls/hr IV UD PRN PRN Reason: MG = or < 1.7 Potassium Chloride 40 meq/ (Dextrose) 520 mls @ 130 mls/hr IV UD PRN PRN Reason: K+ = or < 3.5 Iron Carb/Multivit/[place]/Folic Acid (Multivit,Ther Iron,Ca,Fa & Min 1 Tablet) 1 tab PO DAILY [facility] Last Admin: 09/05/20 10:48 Dose: 1 tab Documented by: Melatonin (Melatonin 3 Mg Tablet) 3 mg PO HSP PRN PRN Reason: Insomnia Metoprolol Tartrate (Metoprolol Tartrate 5 Mg/5 Ml Vial) 5 mg IV Q5M PRN PRN Reason: Heart Rate > 140 bpm Nitroglycerin (Nitroglycerin 0.4 Mg Tab.Subl) 0.4 mg SL Q5M PRN PRN Reason: Chest Pain Ondansetron HCl (Ondansetron 4 Mg Odt Tablet) 4 mg SL Q4-6HP PRN; Protocol PRN Reason: Nausea And Vomiting Ondansetron HCl (Ondansetron 4 Mg/2 Ml Vial) 4 mg IV Q4-6HP PRN; Protocol PRN Reason: Nausea And Vomiting Fluticasone- Umeclidin-Vilanter [ Trelegy Ellipta] Inhaler 1 dose INH DAILY [facility] Last Admin: 09/05/20 10:39 Dose: 1 dose Documented by: Polyethylene Glycol (Polyethylene Glycol 3350 17 Gm Packet) 17 gm PO DAILYP PRN PRN Reason: Constipation Potassium Chloride (Potassium Chloride 10 Meq Tablet) 20 meq PO [facility] Last Admin: 09/05/20 10:47 Dose: 20 meq Documented by: Senna/Docusate Sodium (Sennosides/Docusate Sodium 1 Tab Tablet) 1 tab PO [facility] Last Admin: 09/04/20 21:10 Dose: 1 tab Documented by: Sitagliptin Phosphate (Sitagliptin 100 Mg Tablet) 100 mg PO DAILY [facility] Last Admin: 09/05/20 10:47 Dose: 100 mg Documented by: Sodium Chloride (0.9 % Sodium Chloride 10 Ml Syringe) 10 ml IV Q8 [facility] Last Admin: 09/05/20 06:18 Dose: 10 ml Documented by: Theophylline (Theophylline Anhydrous 100 Mg Tab.Sr.12h) 300 mg PO BID [facility] Last Admin: 09/05/20 10:50 Dose: 300 mg Documented by: Trazodone HCl (Trazodone Hcl 50 Mg Tablet) 50 mg PO QHS [facility] Last Admin: 09/04/20 21:12 Dose: 50 mg Documented by: Trazodone HCl (Trazodone Hcl 50 Mg Tablet) 50 mg PO HSP PRN PRN Reason: Insomnia ABG Interpretation ABG results: 09/02/20 20:03 ABG Methemoglobin 0.3 L VBG pH 7.43 H VBG pCO2 47.8 VBG pO2 46.3 H VBG HCO3 30.7 H VBG Total CO2 32.2 H VBG O2 Saturation 78.5 H VBG Base Excess 6 H A/P Narrative A/P Narrative: * Acute decompensated heart failure-responding well to diuretics. Await echocardiogram results * Right upper lobe pneumonia-possible aspiration. Hold antibiotic coverage as normal white count and absence of fever * Pleural effusion likely secondary to CHF. * Acute on chronic hypoxic respiratory failure-underlying COPD. Continue pulmonary toilet/bronchodilators * Degenerative joint disease with left hip pain, outpatient orthopedics consult on discharge * DM type II-continue CC diet/sitagliptin * Anxiety disorder-restart home medications once medication is available * Prophylax Heparin Plan * Continue diuretics * Pulmonary toilet/aspiration precaution * Wean oxygen as tolerated * Await echocardiogram * Pre-existing medical condition management on home medications * PT OT/nutrition support * Outpatient orthopedics follow-up on discharge for degenerative hip changes Time Spent With Patient Time: Total time spent is greater than 50% in coordination of care (as documented) at patient's floor/unit and/or counseling patient: QUALITY VTE Deep Vein Thrombosis/Pulmonary Embolism Present on Admission: No
[2020-09-05] MEDS: IPRATROPIUM/ALBUTEROL 3 ML AMPUL.NEB NEB PRN ×2 (14:49→21:20)
[2020-09-05] MEDS: SENNOSIDES/DOCUSATE SODIUM 1 TAB TABLET PO SCH (21:51)
[2020-09-05] MEDS: traZODone HCL 50 MG TABLET PO SCH (21:51)
[2020-09-06] MEDS: 0.9 % SODIUM CHLORIDE 10 ML SYRINGE IV SCH ×3 (05:48→20:42)
[2020-09-06 06:47] LABS: Basophils # (Auto) 0.06 K/mcL (0.00-0.20); Basophils % (Auto) 0.9 % (0.0-2.0); Eosinophils # (Auto) 0.36 K/mcL (0.00-0.70); Eosinophils % (Auto) 5.1 % (0.0-7.0); Hematocrit 33.6 % (41.0-55.0); Hemoglobin 10.4 g/dL (13.5-16.5); Lymphocytes # (Auto) 2.01 K/mcL (1.50-4.80); Lymphocytes % (Auto) 28.7 % (15.0-49.0); Mean Cell Volume 91.1 fL (80.0-100.0); Mean Platelet Volume 10.6 fL (7.4-10.4); Monocytes # (Auto) 0.62 K/mcL (0.10-0.90); Monocytes % (Auto) 8.9 % (1.0-12.0); Neutrophils % (Auto) 56.4 % (38.0-78.0); Platelet Count 244 K/mcL (140-440); RBC 3.69 M/mcL (4.50-5.90); Red Cell Distribution Width 14.6 % (11.5-14.5)
[2020-09-06 07:07] LABS: ALT/SGPT 11 U/L (<40); AST/SGOT 20 U/L (<40); Albumin 2.9 gm/dL (3.2-5.2); Albumin/Globulin Ratio 0.7 (1.0-2.3); Alkaline Phosphatase 71 U/L (39-117); Bilirubin,Direct < 0.2 mg/dL (0-0.3); Bilirubin,Total 0.2 mg/dL (0.1-1.0); Blood Urea Nitrogen 18 mg/dL (8-23); Calcium 8.2 mg/dL (8.6-10.4); Carbon Dioxide 34 mmol/L (22-30); Chloride 97 mmol/L (96-108); Glomerular Filtration Rate 79; Glucose 88 mg/dL (70-105); Lactate Dehydrogenase 139 U/L (135-225); Phosphorous 2.2 mg/dL (2.5-4.5); Triglycerides 58 mg/dL (<150); Uric Acid 6.9 mg/dL (2.5-8.0)
[2020-09-06] MEDS: POTASSIUM CHLORIDE 10 MEQ TABLET PO SCH (08:18)
[2020-09-06] MEDS: FUROSEMIDE 40 MG TABLET PO SCH ×2 (08:19→15:17)
[2020-09-06] MEDS: DOXAZOSIN 4 MG TABLET PO SCH (08:19)
[2020-09-06] MEDS: sitaGLIPtin 100 MG TABLET PO SCH (08:20)
[2020-09-06] MEDS: ALLOPURINOL 100 MG TABLET PO SCH (08:20)
--- NOTE | 2020-09-06 08:20 | Internal Med Progress Note ---
SUBJECTIVE Subjective Patient information: Note initiated : 09/05/20 at 8:17 am Service Date, if different from initiated Date: [] Patient: Jose Alberto Henderson 80 y/o M admitted on 09/02/20 for weakness, anxiety, SOB. Chief Complaint: [] Interval history: Mr. 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 Over the last couple days he has noted increasing shortness of breath but denies fever chills. He has been laying in the bed for most of the last week. His caregiver has also been unable to provide help due to being sick. He presents to the ER with multiple complaints. Initial work-up was consistent with left-sided pleural effusion/right-sided chest infiltrate on chest imaging. Patient was started on diuretics/Nitropaste and antibiotics. Hospital service was consulted for evaluation and admission. At the time of my evaluation patient is alert and oriented. He is slightly anxious was able to provide history as above. Denies chest palpitation/diaphoresis/fever/productive cough/hemoptysis/weight loss. He denies sick contacts. Has felt miserable over the last few days due to hip pain and inability to ambulate, fix a meal for himself and feels dehydrated. 09/03-patient doing better since previous day. Improved shortness of breath. Currently on [address] chest/ultrasound thoracentesis today. Echocardiogram pending. White count 8.1, creatinine up to 1.3 from 0.8. 09/04- Patient doing a lot better. Stable hemodynamics and labs. Improving hypoxia now on fibers oxygen. Refused thoracentesis. Diuresing well. On antibiotic coverage. Echocardiogram ordered. Continue PT OT/transition to medical floor 09/05-improving pneumonia, continue aspiration precaution, improving hypoxia on 4 L oxygen. Continue bronchodilators/pulmonary toilet. Overnight fever chills. Tolerating diet. No anxiety. In good spirits. Constitutional Vitals: Vital Signs Temp Pulse Resp BP Pulse Ox 97.6 F 75 20 132/70 92 09/06/20 07:42 09/06/20 07:42 09/06/20 07:42 09/06/20 07:42 09/06/20 07:42 Period Temp Pulse Resp BP Sys/Jung Pulse Ox Last 24 Hr 97.4 F-98.1 F 75-100 14-22 109-138/52-70 91-97 Intake and Output 09/05/20 09/06/20 09/06/20 21:59 05:59 13:59 Intake Total 1250 1025 240 Output Total 775 825 200 Balance 475 200 40 Weight 84.992 kg alert and oriented On 3 to 4 L oxygen Minimally labored breathing but able to talk in full sentences Improved cough Nondistended nontender abdomen Intake & Output: Intake & Output 09/05/20 09/06/20 09/06/20 21:59 05:59 13:59 Intake Total 1250 1025 240 Output Total 775 825 200 Balance 475 200 40 Weight 84.992 kg Intake: IV 50 65 Oral 1200 960 240 Output: Void Amount 775 825 200 Other: Meal Dinner Percent of Meal Consumed 100% Urine Appearance Clear Clear Clear Urine Color Straw Bright Yellow Bright Yellow Urine Odor Normal Normal OBJ DATA Labs CBC & Chem 7: 09/06/20 05:12 09/06/20 05:12 Labs: Abnormal Lab Results 09/06/20 09/06/20 09/05/20 05:12 05:12 06:08 RBC 3.69 L Hgb 10.4 L Hct 33.6 L MCHC RDW 14.6 H MPV 10.6 H Sodium 132 L Carbon Dioxide 34 H 33 H Anion Gap 5.0 L 3.0 L BUN Calcium 8.2 L 8.3 L Phosphorus 2.2 L 2.2 L Albumin 2.9 L 2.9 L Globulin 4.0 H 4.2 H Albumin/Globulin Ratio 0.7 L 0.7 L 09/05/20 09/04/20 09/04/20 06:08 04:45 04:45 RBC 3.73 L 3.72 L Hgb 10.6 L 10.4 L Hct 34.1 L 34.5 L MCHC 30.1 L RDW 14.6 H 14.6 H MPV Sodium Carbon Dioxide 31 H Anion Gap 5.0 L BUN 24 H Calcium 8.2 L Phosphorus Albumin 2.5 L Globulin 4.3 H Albumin/Globulin Ratio 0.6 L Meds: Medications Acetaminophen (Acetaminophen 325 Mg Tablet) 650 mg PO Q4-6HP PRN; Protocol PRN Reason: Per Pain Protocol/Fever > 101 Last Admin: 09/05/20 06:49 Dose: 650 mg Documented by: Albuterol/Ipratropium (Ipratropium/Albuterol 3 Ml Ampul.Neb) 3 ml NEB Q4HP PRN PRN Reason: wheezing Last Admin: 09/05/20 21:20 Dose: 3 ml Documented by: Allopurinol (Allopurinol 100 Mg Tablet) 200 mg PO DAILY [facility] Last Admin: 09/05/20 10:48 Dose: 200 mg Documented by: Bisacodyl (Bisacodyl 10 Mg Supp.Rect) 10 mg NC Q2-3DAYS PRN PRN Reason: Constipation Budesonide (Budesonide 0.5 Mg/2 Ml Ampul.Neb) 0.5 mg NEB Q12 PRN PRN Reason: Wheezing Docusate Sodium (Docusate Sodium 100 Mg Capsule) 100 mg PO BID [facility] Last Admin: 09/05/20 21:52 Dose: Not Given Documented by: Doxazosin Mesylate (Doxazosin 4 Mg Tablet) 4 mg PO DAILY [facility] Last Admin: 09/05/20 10:47 Dose: 4 mg Documented by: Furosemide (Furosemide 40 Mg Tablet) 40 mg PO BIDD [facility] Last Admin: 09/05/20 15:47 Dose: 40 mg Documented by: Heparin Sodium (Porcine) (Heparin 5,000 Unit/Ml Vial) 5,000 unit SQ Q12 [facility] Last Admin: 09/05/20 21:50 Dose: 5,000 unit Documented by: Hydralazine HCl (Hydralazine 20 Mg/Ml Vial) 10 mg IV Q4-6HP PRN PRN Reason: Hypertension Acetaminophen (Ofirmev) 650 mg in 65 mls @ 130 mls/hr IV Q6HP PRN; Protocol PRN Reason: Per Pain Protocol/Fever > 101 Last Infusion: 09/05/20 23:52 Dose: Infused Documented by: Magnesium Sulfate (Magnesium Sulfate) 2 gm in 50 mls @ 50 mls/hr IV UD PRN PRN Reason: MG = or < 1.7 Last Infusion: 09/05/20 18:00 Dose: Infused Documented by: Potassium Chloride 40 meq/ (Dextrose) 520 mls @ 130 mls/hr IV UD PRN PRN Reason: K+ = or < 3.5 Iron Carb/Multivit/[place]/Folic Acid (Multivit,Ther Iron,Ca,Fa & Min 1 Tablet) 1 tab PO DAILY [facility] Last Admin: 09/05/20 10:48 Dose: 1 tab Documented by: Melatonin (Melatonin 3 Mg Tablet) 3 mg PO HSP PRN PRN Reason: Insomnia Metoprolol Tartrate (Metoprolol Tartrate 5 Mg/5 Ml Vial) 5 mg IV Q5M PRN PRN Reason: Heart Rate > 140 bpm Nitroglycerin (Nitroglycerin 0.4 Mg Tab.Subl) 0.4 mg SL Q5M PRN PRN Reason: Chest Pain Ondansetron HCl (Ondansetron 4 Mg Odt Tablet) 4 mg SL Q4-6HP PRN; Protocol PRN Reason: Nausea And Vomiting Ondansetron HCl (Ondansetron 4 Mg/2 Ml Vial) 4 mg IV Q4-6HP PRN; Protocol PRN Reason: Nausea And Vomiting Fluticasone- Umeclidin-Vilanter [ Trelegy Ellipta] Inhaler 1 dose INH DAILY [facility] Last Admin: 09/05/20 10:39 Dose: 1 dose Documented by: Polyethylene Glycol (Polyethylene Glycol 3350 17 Gm Packet) 17 gm PO DAILYP PRN PRN Reason: Constipation Potassium Chloride (Potassium Chlor[facility] 10 Meq Tablet) [facility] Last Admin: 09/05/20 10:47 Dose: 20 meq Documented by: Senna/Docusate Sodium (Sennosides/Docusate Sodium 1 Tab Tablet) [address] [facility] Last Admin: 09/05/20 21:51 Dose: Not Given Documented by: Sitagliptin Phosphate (Sitagliptin 100 Mg Tablet) 100 mg PO DAILY [facility] Last Admin: 09/05/20 10:47 Dose: 100 mg Documented by: Sodium Chloride (0.9 % Sodium Chloride 10 Ml Syringe) 10 ml IV Q8 [facility] Last Admin: 09/06/20 05:48 Dose: 10 ml Documented by: Theophylline (Theophylline Anhydrous 100 Mg Tab.Sr.12h) 300 mg PO BID [facility] Last Admin: 09/05/20 21:56 Dose: 300 mg Documented by: Trazodone HCl (Trazodone Hcl 50 Mg Tablet) 50 mg PO QHS [facility] Last Admin: 09/05/20 21:51 Dose: 50 mg Documented by: Trazodone HCl (Trazodone Hcl 50 Mg Tablet) 50 mg PO HSP PRN PRN Reason: Insomnia ABG Interpretation ABG results: 09/02/20 20:03 ABG Methemoglobin 0.3 L VBG pH 7.43 H VBG pCO2 47.8 VBG pO2 46.3 H VBG HCO3 30.7 H VBG Total CO2 32.2 H VBG O2 Saturation 78.5 H VBG Base Excess 6 H A/P Narrative A/P Narrative: * Acute decompensated heart failure-responding well to diuretics. Optimize CHF management based on echo findings * Right upper lobe pneumonia-likely aspiration. Hold antibiotic coverage as normal white count and absence of fever. Clinically improving, maintain aspiration precautions * Pleural effusion likely secondary to CHF. Interval chest imaging , no pleurisy/leukocytosis to suggest parapneumonic effusion * Acute on chronic hypoxic respiratory failure-secondary to CHF/pleural effusion/underlying COPD. Continue pulmonary toilet/bronchodilators. Wean oxygen as tolerated * Degenerative joint disease with left hip pain, outpatient orthopedics consult on discharge * DM type II-continue CC diet/sitagliptin * Anxiety disorder-stable * Prophylax Heparin Plan * Continue diuresis/supplemental oxygen * Pulmonary toilet/aspiration precaution * Optimize CHF treatment based on echo finding * Pre-existing medical condition management on home medications * PT OT/nutrition support * Outpatient orthopedics follow-up on discharge for degenerative hip changes Time Spent With Patient Time: Total time spent is greater than 50% in coordination of care (as documented) at patient's floor/unit and/or counseling patient: QUALITY VTE Deep Vein Thrombosis/Pulmonary Embolism Present on Admission: No
[2020-09-06] MEDS: THEOPHYLLINE ANHYDROUS 100 MG TAB.SR.12H PO SCH ×2 (08:21→20:42)
[2020-09-06] MEDS: MULTIVIT,THER IRON,CA,FA & MIN 1 TABLET PO SCH (08:21)
[2020-09-06] MEDS: DOCUSATE SODIUM 100 MG CAPSULE PO SCH ×2 (08:23→20:42)
[2020-09-06] MEDS: HEPARIN 5,000 UNIT/ML VIAL SQ SCH ×2 (08:26→20:42)
--- NOTE | 2020-09-06 08:26 | Internal Med Progress Note ---
SUBJECTIVE Subjective Patient information: Note initiated : 09/06/20 at 8:24 am Service Date, if different from initiated Date: [] Patient: Jose Alberto Henderson 80 y/o M admitted on 09/02/20 for weakness, anxiety, SOB. Chief Complaint: [] Interval history: Mr. 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 Over the last couple days he has noted increasing shortness of breath but denies fever chills. He has been laying in the bed for most of the last week. His caregiver has also been unable to provide help due to being sick. He presents to the ER with multiple complaints. Initial work-up was consistent with left-sided pleural effusion/right-sided chest infiltrate on chest imaging. Patient was started on diuretics/Nitropaste and antibiotics. Hospital service was consulted for evaluation and admission. At the time of my evaluation patient is alert and oriented. He is slightly anxious was able to provide history as above. Denies chest palpitation/diaphoresis/fever/productive cough/hemoptysis/weight loss. He denies sick contacts. Has felt miserable over the last few days due to hip pain and inability to ambulate, fix a meal for himself and feels dehydrated. 09/03-patient doing better since previous day. Improved shortness of breath. Currently on [address] chest/ultrasound thoracentesis today. Echocardiogram pending. White count 8.1, creatinine up to 1.3 from 0.8. 09/04- Patient doing a lot better. Stable hemodynamics and labs. Improving hypoxia now on fibers oxygen. Refused thoracentesis. Diuresing well. On antibiotic coverage. Echocardiogram ordered. Continue PT OT/transition to medical floor 09/05-improving pneumonia, continue aspiration precaution, improving hypoxia on 4 L oxygen. Continue bronchodilators/pulmonary toilet. Overnight fever chills. Tolerating diet. No anxiety. In good spirits. 09/06-patient continues to improve. No leukocytosis fever. Weaning oxygen down to 3 L. On bronchodilators/pulmonary toilet. Tolerating diet. Ongoing physical therapy. Case management to coordinate SNF transfer likely in 24 hours. Patient would also like home health services set up by case management. Still await echocardiogram results for further optimization of CHF management. Initiate extended release beta-kai and low-dose ALEJANDRO inhibitor Constitutional Vitals: Vital Signs Temp Pulse Resp BP Pulse Ox 97.6 F 75 20 132/70 92 09/06/20 07:42 09/06/20 07:42 09/06/20 07:42 09/06/20 07:42 09/06/20 07:42 Period Temp Pulse Resp BP Sys/Jung Pulse Ox Last 24 Hr 97.4 F-98.1 F 75-100 14-22 109-138/52-70 91-97 Intake and Output 09/05/20 09/06/20 09/06/20 21:59 05:59 13:59 Intake Total 1250 1025 240 Output Total 775 825 200 Balance 475 200 40 Weight 84.992 kg Alert oriented Nonlabored breathing now on 3 L oxygen Minimal anxiety No lymphedema Intake & Output: Intake & Output 09/05/20 09/06/20 09/06/20 21:59 05:59 13:59 Intake Total 1250 1025 240 Output Total 775 825 200 Balance 475 200 40 Weight 84.992 kg Intake: IV 50 65 Oral 1200 960 240 Output: Void Amount 775 825 200 Other: Meal Dinner Percent of Meal Consumed 100% Urine Appearance Clear Clear Clear Urine Color Straw Bright Yellow Bright Yellow Urine Odor Normal Normal OBJ DATA Labs CBC & Chem 7: 09/06/20 05:12 09/06/20 05:12 Labs: Abnormal Lab Results 09/06/20 09/06/20 09/05/20 05:12 05:12 06:08 RBC 3.69 L Hgb 10.4 L Hct 33.6 L MCHC RDW 14.6 H MPV 10.6 H Sodium 132 L Carbon Dioxide 34 H 33 H Anion Gap 5.0 L 3.0 L BUN Calcium 8.2 L 8.3 L Phosphorus 2.2 L 2.2 L Albumin 2.9 L 2.9 L Globulin 4.0 H 4.2 H Albumin/Globulin Ratio 0.7 L 0.7 L 09/05/20 09/04/20 09/04/20 06:08 04:45 04:45 RBC 3.73 L 3.72 L Hgb 10.6 L 10.4 L Hct 34.1 L 34.5 L MCHC 30.1 L RDW 14.6 H 14.6 H MPV Sodium Carbon Dioxide 31 H Anion Gap 5.0 L BUN 24 H Calcium 8.2 L Phosphorus Albumin 2.5 L Globulin 4.3 H Albumin/Globulin Ratio 0.6 L Meds: Medications Acetaminophen (Acetaminophen 325 Mg Tablet) 650 mg PO Q4-6HP PRN; Protocol PRN Reason: Per Pain Protocol/Fever > 101 Last Admin: 09/05/20 06:49 Dose: 650 mg Documented by: Albuterol/Ipratropium (Ipratropium/Albuterol 3 Ml Ampul.Neb) 3 ml NEB Q4HP PRN PRN Reason: wheezing Last Admin: 09/05/20 21:20 Dose: 3 ml Documented by: Allopurinol (Allopurinol 100 Mg Tablet) 200 mg PO DAILY [facility] Last Admin: 09/06/20 08:20 Dose: 200 mg Documented by: Bisacodyl (Bisacodyl 10 Mg Supp.Rect) 10 mg MA Q2-3DAYS PRN PRN Reason: Constipation Budesonide (Budesonide 0.5 Mg/2 Ml Ampul.Neb) 0.5 mg NEB Q12 PRN PRN Reason: Wheezing Docusate Sodium (Docusate Sodium 100 Mg Capsule) 100 mg PO BID [facility] Last Admin: 09/06/20 08:23 Dose: Not Given Documented by: Doxazosin Mesylate (Doxazosin 4 Mg Tablet) 4 mg PO DAILY [facility] Last Admin: 09/06/20 08:19 Dose: 4 mg Documented by: Furosemide (Furosemide 40 Mg Tablet) 40 mg PO BIDD [facility] Last Admin: 09/06/20 08:19 Dose: 40 mg Documented by: Heparin Sodium (Porcine) (Heparin 5,000 Unit/Ml Vial) 5,000 unit SQ Q12 [facility] Last Admin: 09/05/20 21:50 Dose: 5,000 unit Documented by: Hydralazine HCl (Hydralazine 20 Mg/Ml Vial) 10 mg IV Q4-6HP PRN PRN Reason: Hypertension Acetaminophen (Ofirmev) 650 mg in 65 mls @ 130 mls/hr IV Q6HP PRN; Protocol PRN Reason: Per Pain Protocol/Fever > 101 Last Infusion: 09/05/20 23:52 Dose: Infused Documented by: Magnesium Sulfate (Magnesium Sulfate) 2 gm in 50 mls @ 50 mls/hr IV UD PRN PRN Reason: MG = or < 1.7 Last Infusion: 09/05/20 18:00 Dose: Infused Documented by: Potassium Chloride 40 meq/ (Dextrose) 520 mls @ 130 mls/hr IV UD PRN PRN Reason: K+ = or < 3.5 Iron Carb/Multivit/[place]/Folic Acid (Multivit,Ther Iron,Ca,Fa & Min 1 Tablet) 1 tab PO DAILY [facility] Last Admin: 09/06/20 08:21 Dose: 1 tab Documented by: Melatonin (Melatonin 3 Mg Tablet) 3 mg PO HSP PRN PRN Reason: Insomnia Metoprolol Tartrate (Metoprolol Tartrate 5 Mg/5 Ml Vial) 5 mg IV Q5M PRN PRN Reason: Heart Rate > 140 bpm Nitroglycerin (Nitroglycerin 0.4 Mg Tab.Subl) 0.4 mg SL Q5M PRN PRN Reason: Chest Pain Ondansetron HCl (Ondansetron 4 Mg Odt Tablet) 4 mg SL Q4-6HP PRN; Protocol PRN Reason: Nausea And Vomiting Ondansetron HCl (Ondansetron 4 Mg/2 Ml Vial) 4 mg IV Q4-6HP PRN; Protocol PRN Reason: Nausea And Vomiting Fluticasone- Umeclidin-Vilanter [ Trelegy Ellipta] Inhaler 1 dose INH DAILY [facility] Last Admin: 09/05/20 10:39 Dose: 1 dose Documented by: Polyethylene Glycol (Polyethylene Glycol 3350 17 Gm Packet) 17 gm PO DAILYP PRN PRN Reason: Constipation Potassium Chloride (Potassium Chloride 10 Meq Tablet) 20 meq PO [facility] Last Admin: 09/06/20 08:18 Dose: 20 meq Documented by: Senna/Docusate Sodium (Sennosides/Docusate Sodium 1 Tab Tablet) 1 tab PO [facility] Last Admin: 09/05/20 21:51 Dose: Not Given Documented by: Sitagliptin Phosphate (Sitagliptin 100 Mg Tablet) 100 mg PO DAILY [facility] Last Admin: 09/06/20 08:20 Dose: 100 mg Documented by: Sodium Chloride (0.9 % Sodium Chloride 10 Ml Syringe) 10 ml IV Q8 [facility] Last Admin: 09/06/20 05:48 Dose: 10 ml Documented by: Theophylline (Theophylline Anhydrous 100 Mg Tab.Sr.12h) 300 mg PO BID [facility] Last Admin: 09/06/20 08:21 Dose: 300 mg Documented by: Trazodone HCl (Trazodone Hcl 50 Mg Tablet) 50 mg PO QHS [facility] Last Admin: 09/05/20 21:51 Dose: 50 mg Documented by: Trazodone HCl (Trazodone Hcl 50 Mg Tablet) 50 mg PO HSP PRN PRN Reason: Insomnia ABG Interpretation ABG results: 09/02/20 20:03 ABG Methemoglobin 0.3 L VBG pH 7.43 H VBG pCO2 47.8 VBG pO2 46.3 H VBG HCO3 30.7 H VBG Total CO2 32.2 H VBG O2 Saturation 78.5 H VBG Base Excess 6 H A/P Narrative A/P Narrative: * Acute decompensated heart failure-responding well to diuretics. Start ALEJANDRO inhibitor/beta-kai. Optimize based on echo * Right upper lobe pneumonia-likely aspiration. Hold antibiotic coverage as normal white count and absence of fever. Clinically improving, maintain aspiration precautions * Pleural effusion likely secondary to CHF. Interval chest imaging , no pleurisy/leukocytosis to suggest parapneumonic effusion * Acute on chronic hypoxic respiratory failure-secondary to CHF/pleural effu son/underlying COPD. Continue pulmonary toilet/bronchodilators. Wean oxygen as tolerated * Degenerative joint disease with left hip pain, outpatient orthopedics consult on discharge * DM type II-continue CC diet/sitagliptin * Anxiety disorder-stable * Prophylax Heparin Plan * Continue diuresis/supplemental oxygen * Pulmonary toilet/aspiration precaution * Chest imaging * Start ALEJANDRO inhibitor/extended release beta-kai, further optimize CHF treatment based on echo finding * Pre-existing medical condition management on home medications * PT OT/nutrition support * Outpatient orthopedics follow-up on discharge for degenerative hip changes Time Spent With Patient Time: Total time spent is greater than 50% in coordination of care (as documented) at patient's floor/unit and/or counseling patient: QUALITY VTE Deep Vein Thrombosis/Pulmonary Embolism Present on Admission: No
[2020-09-06] MEDS: IPRATROPIUM/ALBUTEROL 3 ML AMPUL.NEB NEB PRN ×3 (08:45→22:41)
[2020-09-06] MEDS: ACETAMINOPHEN 325 MG TABLET PO PRN (08:55)
[2020-09-06] MEDS: METOPROLOL SUCCINATE 25 MG TAB.XL.24H PO SCH (08:56)
[2020-09-06] MEDS: LISINOPRIL 2.5 MG TABLET PO SCH (08:57)
[2020-09-06] MEDS: Fluticasone-Umeclidin-Vilanter [Trelegy Ellipta] Inhaler INH SCH (08:58)
--- NOTE | 2020-09-06 09:11 | XRay Report ---
HISTORY: Shortness of breath with weakness FINDINGS: There is moderate consolidation in both lungs superimposed upon underlying severe emphysema. The greatest opacification is in the throughout right lower lobe and laterally at the left lung base. The consolidation has become worse since the recent chest CT done on 09/03/20. Superimposed are small bilateral pleural effusions which were better seen on the recent chest CT. The heart size is normal. The eduin are partially obscured by consolidated lung but no mass or adenopathy are detected. IMPRESSION: Worsening opacification in both lungs which may be atelectasis or pneumonia superimposed upon severe emphysema. Pulmonary edema is less likely. Interpreted and Authenticated by: Abdulaziz Alvarez 09/06/20
[2020-09-06] MEDS ORDERED: CETIRIZINE 10 MG TABLET PO PRN (13:04)
[2020-09-06] MEDS: SENNOSIDES/DOCUSATE SODIUM 1 TAB TABLET PO SCH (20:42)
[2020-09-06] MEDS: SIMETHICONE 80 MG TAB.CHEW CHEWED SCH (20:42)
[2020-09-06] MEDS: traZODone HCL 50 MG TABLET PO SCH (20:42)
[2020-09-07] MEDS: 0.9 % SODIUM CHLORIDE 10 ML SYRINGE IV SCH ×3 (06:48→20:52)
[2020-09-07] MEDS: IPRATROPIUM/ALBUTEROL 3 ML AMPUL.NEB NEB PRN ×2 (07:48→14:58)
[2020-09-07] MEDS: Fluticasone-Umeclidin-Vilanter [Trelegy Ellipta] Inhaler INH SCH ×2 (08:04→08:49)
[2020-09-07] MEDS: DOCUSATE SODIUM 100 MG CAPSULE PO SCH ×2 (08:42→20:52)
[2020-09-07] MEDS: SIMETHICONE 80 MG TAB.CHEW CHEWED SCH ×2 (08:42→20:50)
[2020-09-07] MEDS: sitaGLIPtin 100 MG TABLET PO SCH (08:42)
[2020-09-07] MEDS: LISINOPRIL 2.5 MG TABLET PO SCH (08:43)
[2020-09-07] MEDS: FUROSEMIDE 40 MG TABLET PO SCH ×2 (08:43→16:07)
[2020-09-07] MEDS: MULTIVIT,THER IRON,CA,FA & MIN 1 TABLET PO SCH (08:43)
[2020-09-07] MEDS: POTASSIUM CHLORIDE 10 MEQ TABLET PO SCH (08:43)
[2020-09-07] MEDS: METOPROLOL SUCCINATE 25 MG TAB.XL.24H PO SCH (08:45)
[2020-09-07] MEDS: THEOPHYLLINE ANHYDROUS 100 MG TAB.SR.12H PO SCH ×2 (08:46→20:52)
[2020-09-07] MEDS: HEPARIN 5,000 UNIT/ML VIAL SQ SCH ×2 (08:47→20:52)
[2020-09-07] MEDS: ALLOPURINOL 100 MG TABLET PO SCH (08:47)
[2020-09-07] MEDS: DOXAZOSIN 4 MG TABLET PO SCH (08:48)
[2020-09-07 09:31] LABS: Basophils # (Auto) 0.07 K/mcL (0.00-0.20); Basophils % (Auto) 0.9 % (0.0-2.0); Eosinophils # (Auto) 0.41 K/mcL (0.00-0.70); Eosinophils % (Auto) 5.2 % (0.0-7.0); Hematocrit 35.9 % (41.0-55.0); Lymphocytes % (Auto) 29.4 % (15.0-49.0); Mean Cell Volume 91.6 fL (80.0-100.0); Mean Corpuscular HGB Conc 30.6 g/dL (31.0-36.0); Mean Platelet Volume 10.7 fL (7.4-10.4); Monocytes # (Auto) 0.75 K/mcL (0.10-0.90); Monocytes % (Auto) 9.6 % (1.0-12.0); Neutrophils % (Auto) 54.9 % (38.0-78.0); Platelet Count 263 K/mcL (140-440); RBC 3.92 M/mcL (4.50-5.90); Red Cell Distribution Width 14.8 % (11.5-14.5); WBC 7.8 K/mcL (4.5-11.0)
[2020-09-07 09:49] LABS: ALT/SGPT 20 U/L (<40); AST/SGOT 33 U/L (<40); Albumin 2.9 gm/dL (3.2-5.2); Albumin/Globulin Ratio 0.6 (1.0-2.3); Alkaline Phosphatase 74 U/L (39-117); Bilirubin,Direct < 0.2 mg/dL (0-0.3); Bilirubin,Total 0.2 mg/dL (0.1-1.0); Blood Urea Nitrogen 18 mg/dL (8-23); Calcium 8.5 mg/dL (8.6-10.4); Carbon Dioxide 35 mmol/L (22-30); Chloride 98 mmol/L (96-108); Globulin 4.6 gm/dL (2.2-3.7); Glomerular Filtration Rate 79; Glucose 86 mg/dL (70-105); Lactate Dehydrogenase 173 U/L (135-225); Phosphorous 2.4 mg/dL (2.5-4.5); Triglycerides 65 mg/dL (<150)
[2020-09-07] MEDS: ACETAMINOPHEN 325 MG TABLET PO PRN (20:51)
[2020-09-07] MEDS: traZODone HCL 50 MG TABLET PO SCH (20:51)
[2020-09-07] MEDS: SENNOSIDES/DOCUSATE SODIUM 1 TAB TABLET PO SCH (20:52)
--- NOTE | 2020-09-07 22:00 | Internal Med Progress Note ---
SUBJECTIVE Subjective Patient information: Note initiated : 09/07/20 at 9:50 pm Service Date, if different from initiated Date: [] Patient: Jose Alberto Henderson 80 y/o M admitted on 09/02/20 for weakness, anxiety, SOB. Chief Complaint: [CHF exacerbation, pneumonia, and hypoxic respiratory failure] Overnight: Still on 4-6L/min supplemental oxygen via nasal cannula. Afebrile. Otherwise, there was no other major overnight events. Subjective: Denies SOB. Denies cough or sputum productive. Denies wheezing. Denies fever, chills, or sweating. Constitutional Vitals: Vital Signs Temp Pulse Resp BP Pulse Ox 36.7 C 87 22 110/55 92 09/07/20 16:00 09/07/20 16:00 09/07/20 16:00 09/07/20 16:00 09/07/20 16:00 Period Temp Pulse Resp BP Sys/Jung Pulse Ox Last 24 Hr 36.2 C-36.7 C 63-92 18-26 110-140/54-82 92-95 Intake and Output 09/07/20 09/07/20 09/07/20 05:59 13:59 21:59 Intake Total 600 480 540 Output Total 450 100 400 Balance 150 380 140 Intake & Output: Intake & Output 09/07/20 09/07/20 09/07/20 05:59 13:59 21:59 Intake Total 600 480 540 Output Total 450 100 400 Balance 150 380 140 Intake: Oral 600 480 540 Output: Urine Catheter Amount 200 Void Amount 450 100 200 Other: Meal Breakfast Percent of Meal Consumed 100% Feeding Ability Independent Urine Appearance Clear Clear Urine Color Bright Yellow Dark Yellow Urine Odor Normal Stool Size Large Moderate Stool Color Brown Blood Tinged Stool Consistency Soft Soft Formed # Bowel Movements 1 1 General appearance: cooperative and no acute distress Head Head exam: Present atraumatic and normocephalic Eye Eye exam: Present EOMI and PERRL ENT ENT exam: Present mucous membranes moist, normal exam and normal external ear exam Additional comments: Nasal cannula in place Neck Neck exam: Present normal inspection; Absent lymphadenopathy, tenderness and thyromegaly Respiratory Respiratory exam: Absent accessory muscle use, respiratory distress and wheezes Cardiovascular Cardiovascular exam: Present normal rate and rhythm; Absent JVD GI/Abdominal GI/Abdominal exam: Present normal bowel sounds and soft; Absent organomegaly and tenderness Rectal Rectal exam: Present deferred Extremities Exam Extremities exam: Present full ROM, normal capillary refill and normal ins pection; Absent tenderness Neurological Exam Neurological exam: Present alert, CN II-XII intact and oriented X3; Absent motor sensory deficit Psychiatric Psychiatric exam: Present normal affect and normal mood; Absent anxious and depressed Skin Skin exam: Present dry and intact OBJ DATA Labs CBC & Chem 7: 09/07/20 05:45 09/07/20 05:45 Labs: Abnormal Lab Results 09/07/20 09/07/20 09/06/20 05:45 05:45 05:12 RBC 3.92 L Hgb 11.0 L Hct 35.9 L MCHC 30.6 L RDW 14.8 H MPV 10.7 H Sodium Carbon Dioxide 35 H 34 H Anion Gap 4.0 L 5.0 L Calcium 8.5 L 8.2 L Phosphorus 2.4 L 2.2 L Albumin 2.9 L 2.9 L Globulin 4.6 H 4.0 H Albumin/Globulin Ratio 0.6 L 0.7 L 09/06/20 09/05/20 09/05/20 05:12 06:08 06:08 RBC 3.69 L 3.73 L Hgb 10.4 L 10.6 L Hct 33.6 L 34.1 L MCHC RDW 14.6 H 14.6 H MPV 10.6 H Sodium 132 L Carbon Dioxide 33 H Anion Gap 3.0 L Calcium 8.3 L Phosphorus 2.2 L Albumin 2.9 L Globulin 4.2 H Albumin/Globulin Ratio 0.7 L Meds: Medications Acetaminophen (Acetaminophen 325 Mg Tablet) 650 mg PO Q4-6HP PRN; Protocol PRN Reason: Per Pain Protocol/Fever > 101 Last Admin: 09/07/20 20:51 Dose: 650 mg Documented by: Albuterol/Ipratropium (Ipratropium/Albuterol 3 Ml Ampul.Neb) 3 ml NEB Q4HP PRN PRN Reason: wheezing Last Admin: 09/07/20 14:58 Dose: 3 ml Documented by: Allopurinol (Allopurinol 100 Mg Tablet) 200 mg PO DAILY [facility] Last Admin: 09/07/20 08:47 Dose: 200 mg Documented by: Bisacodyl (Bisacodyl 10 Mg Supp.Rect) 10 mg [place] Q2-3DAYS PRN PRN Reason: Constipation Budesonide (Budesonide 0.5 Mg/2 Ml Ampul.Neb) 0.5 mg NEB Q12 PRN PRN Reason: Wheezing Cetirizine HCl (Cetirizine 10 Mg Tablet) 10 mg PO Q8HP PRN PRN Reason: Allergy Symptoms Docusate Sodium (Docusate Sodium 100 Mg Capsule) 100 mg PO BID [facility] Last Admin: 09/07/20 20:52 Dose: Not Given Documented by: Doxazosin Mesylate (Doxazosin 4 Mg Tablet) 4 mg PO DAILY [facility] Last Admin: 09/07/20 08:48 Dose: 4 mg Documented by: Furosemide (Furosemide 40 Mg Tablet) 40 mg PO BIDD [facility] Last Admin: 09/07/20 16:07 Dose: 40 mg Documented by: Heparin Sodium (Porcine) (Heparin 5,000 Unit/Ml Vial) 5,000 unit SQ Q12 [facility] Last Admin: 09/07/20 20:52 Dose: 5,000 unit Documented by: Hydralazine HCl (Hydralazine 20 Mg/Ml Vial) 10 mg IV Q4-6HP PRN PRN Reason: Hypertension Acetaminophen (Ofirmev) 650 mg in 65 mls @ 130 mls/hr IV Q6HP PRN; Protocol PRN Reason: Per Pain Protocol/Fever > 101 Last Infusion: 09/05/20 23:52 Dose: Infused Documented by: Magnesium Sulfate (Magnesium Sulfate) 2 gm in 50 mls @ 50 mls/hr IV UD PRN PRN Reason: MG = or < 1.7 Last Infusion: 09/05/20 18:00 Dose: Infused Documented by: Potassium Chloride 40 meq/ (Dextrose) 520 mls @ 130 mls/hr IV UD PRN PRN Reason: K+ = or < 3.5 Iron Carb/Multivit/Transit Department Clerk/Folic Acid (Multivit,Ther Iron,Ca,Fa & Min 1 Tablet) 1 tab PO DAILY [facility] Last Admin: 09/07/20 08:43 Dose: 1 tab Documented by: Lisinopril (Lisinopril 2.5 Mg Tablet) 2.5 mg PO DAILY [facility] Last Admin: 09/07/20 08:43 Dose: 2.5 mg Documented by: Melatonin (Melatonin 3 Mg Tablet) 3 mg PO HSP PRN PRN Reason: Insomnia Metoprolol Succinate (Metoprolol Succinate 25 Mg Tab.Xl.24h) 12.5 mg PO DAILY [facility] Last Admin: 09/07/20 08:45 Dose: 12.5 mg Documented by: Metoprolol Tartrate (Metoprolol Tartrate 5 Mg/5 Ml Vial) 5 mg IV Q5M PRN PRN Reason: Heart Rate > 140 bpm Nitroglycerin (Nitroglycerin 0.4 Mg Tab.Subl) 0.4 mg SL Q5M PRN PRN Reason: Chest Pain Ondansetron HCl (Ondansetron 4 Mg Odt Tablet) 4 mg SL Q4-6HP PRN; Protocol PRN Reason: Nausea And Vomiting Ondansetron HCl (Ondansetron 4 Mg/2 Ml Vial) 4 mg IV Q4-6HP PRN; Protocol PRN Reason: Nausea And Vomiting Fluticasone- Umeclidin-Vilanter [ Trelegy Ellipta] Inhaler 1 dose INH DAILY [facility] Last Admin: 09/07/20 08:49 Dose: 1 dose Documented by: Polyethylene Glycol (Polyethylene Glycol 3350 17 Gm Packet) 17 gm PO DAILYP PRN PRN Reason: Constipation Potassium Chloride (Potassium Chloride 10 Meq Tablet) 20 meq PO [facility] Last Admin: 09/07/20 08:43 Dose: 20 meq Documented by: Senna/Docusate Sodium (Sennosides/Docusate Sodium 1 Tab Tablet) 1 tab PO [facility] Last Admin: 09/07/20 20:52 Dose: Not Given Documented by: Simethicone (Simethicone 80 Mg Tab.Chew) 80 mg CHEWED BID [facility] Last Admin: 09/07/20 20:50 Dose: 80 mg Documented by: Sitagliptin Phosphate (Sitagliptin 100 Mg Tablet) 100 mg PO DAILY [facility] Last Admin: 09/07/20 08:42 Dose: 100 mg Documented by: Sodium Chloride (0.9 % Sodium Chloride 10 Ml Syringe) 10 ml IV Q8 [facility] Last Admin: 09/07/20 20:52 Dose: 10 ml Documented by: Theophylline (Theophylline Anhydrous 100 Mg Tab.Sr.12h) 300 mg PO BID [facility] Last Admin: 09/07/20 20:52 Dose: 300 mg Documented by: Trazodone HCl (Trazodone Hcl 50 Mg Tablet) 50 mg PO QHS [facility] Last Admin: 09/07/20 20:51 Dose: 50 mg Documented by: Trazodone HCl (Trazodone Hcl 50 Mg Tablet) 50 mg PO HSP PRN PRN Reason: Insomnia ABG Interpretation ABG results: 09/02/20 20:03 ABG Methemoglobin 0.3 L VBG pH 7.43 H VBG pCO2 47.8 VBG pO2 46.3 H VBG HCO3 30.7 H VBG Total CO2 32.2 H VBG O2 Saturation 78.5 H VBG Base Excess 6 H A/P Assessment and plan (1) Congestive heart failure: Status: Acute Qualifiers: Heart failure chronicity: acute Heart failure type: unspecified Qualified Code(s): I50.9 - Heart failure, unspecified (2) Hypoxia: Status: Acute Narrative A/P Narrative: 1. Acute on chronic respiratory failure secondary to CHF exacerbation: Medically ready to be discharged to SNF upon acceptance Continue supplemental oxygen via nasal cannula, titrate to achieve spo2 >=92% Lasix 40mg PO BID Metoprolol Lisinopril Trelegy Ellipta 2D echocardiogram showing LVEF 60-65%, no evidence of diastolic dysfunction. Moderate mitral regurgitation 2. Pleural effusion: Resolved as seen by repeat CXR 3. Right upper lobe infiltrate: Hold antibiotics as there is normal WBC level, absence of fever. Respiratory status clinically improving. Thus, hold antibiotics therapy. Continue aspiratory precautions 4. T2DM: Januvia Diabetic diet Time Spent With Patient Time: Total time spent is greater than 50% in coordination of care (as documented) at patient's floor/unit and/or counseling patient: Total time spent with greater than 50% in coordination of care (as documented) at patient's floor/unit and/or counseling patient:: 15 - 24 minutes QUALITY VTE Deep Vein Thrombosis/Pulmonary Embolism Present on Admission: No
[2020-09-08] MEDS: 0.9 % SODIUM CHLORIDE 10 ML SYRINGE IV SCH ×3 (05:31→21:47)
[2020-09-08] MEDS: METOPROLOL SUCCINATE 25 MG TAB.XL.24H PO SCH (08:31)
[2020-09-08] MEDS: LISINOPRIL 2.5 MG TABLET PO SCH (08:31)
[2020-09-08] MEDS: FUROSEMIDE 40 MG TABLET PO SCH ×2 (08:32→16:08)
[2020-09-08] MEDS: DOXAZOSIN 4 MG TABLET PO SCH (08:33)
[2020-09-08] MEDS: ALLOPURINOL 100 MG TABLET PO SCH (08:33)
[2020-09-08] MEDS: POTASSIUM CHLORIDE 10 MEQ TABLET PO SCH (08:33)
[2020-09-08] MEDS: MULTIVIT,THER IRON,CA,FA & MIN 1 TABLET PO SCH (08:34)
[2020-09-08] MEDS: DOCUSATE SODIUM 100 MG CAPSULE PO SCH ×2 (08:34→19:57)
[2020-09-08] MEDS: HEPARIN 5,000 UNIT/ML VIAL SQ SCH ×2 (08:34→21:22)
[2020-09-08] MEDS: sitaGLIPtin 100 MG TABLET PO SCH (08:38)
[2020-09-08] MEDS: SIMETHICONE 80 MG TAB.CHEW CHEWED SCH ×2 (08:39→21:21)
[2020-09-08] MEDS: THEOPHYLLINE ANHYDROUS 100 MG TAB.SR.12H PO SCH ×2 (08:39→21:25)
[2020-09-08] MEDS: IPRATROPIUM/ALBUTEROL 3 ML AMPUL.NEB NEB PRN ×2 (13:28→19:12)
[2020-09-08] MEDS: Fluticasone-Umeclidin-Vilanter [Trelegy Ellipta] Inhaler INH SCH ×2 (13:33→14:17)
--- NOTE | 2020-09-08 15:22 | Internal Med Progress Note ---
SUBJECTIVE Subjective Patient information: Note initiated : 09/08/20 at 3:17 pm Service Date, if different from initiated Date: [] Patient: Jose Alberto Henderson 80 y/o M admitted on 09/02/20 for weakness, anxiety, SOB. Chief Complaint: [CHF exqacerbation] Overnight: Afebrile. Still on supplemental oxygen up to 5L/min overnight. Subjective: Mild SOB. Denies cough or sputum or wheezing. Denies chest pain. Denies fever or chills or sweating. Constitutional Vitals: Vital Signs Temp Pulse Resp BP Pulse Ox 36.1 C L 90 22 127/63 96 09/08/20 12:00 09/08/20 13:35 09/08/20 12:00 09/08/20 12:00 09/08/20 13:35 Period Temp Pulse Resp BP Sys/Jung Pulse Ox Last 24 Hr 36.1 C-36.7 C 61-90 22-26 110-127/55-63 90-98 Intake and Output 09/08/20 09/08/20 09/08/20 05:59 13:59 21:59 Intake Total 400 240 Output Total 350 250 Balance 50 -10 Intake & Output: Intake & Output 09/08/20 09/08/20 09/08/20 05:59 13:59 21:59 Intake Total 400 240 Output Total 350 250 Balance 50 -10 Intake: Oral 400 240 Output: Void Amount 350 250 Other: Meal [place], Ice cream Breakfast Percent of Meal Consumed 100% 100% Feeding Ability Independent Assist with Tray Set Up Urine Appearance Clear Urine Color Bright Yellow Straw Urine Odor Normal Stool Size Small Stool Color Brown Stool Consistency Soft General appearance: cooperative and no acute distress Head Head exam: Present atraumatic and normocephalic Eye Eye exam: Present EOMI and PERRL ENT ENT exam: Present mucous membranes moist, normal exam and normal external ear exam Additional comments: Nasal cannula in place Neck Neck exam: Present normal inspection; Absent lymphadenopathy, tenderness and thyromegaly Respiratory Respiratory exam: Absent accessory muscle use, respiratory distress and wheezes Additional comments: Decreased breath sound in bilateral lung bases Cardiovascular Cardiovascular exam: Present normal rate and rhythm; Absent JVD GI/Abdominal GI/Abdominal exam: Present normal bowel sounds and soft; Absent organomegaly and tenderness Rectal Rectal exam: Present deferred Extremities Exam Extremities exam: Present full ROM, normal capillary refill, normal inspection and pedal edema; Absent tenderness Neurological Exam Neurological exam: Present alert, CN II-XII intact and oriented X3; Absent motor sensory deficit Psychiatric Psychiatric exam: Present normal affect and normal mood; Absent anxious and depressed Skin Skin exam: Present dry and intact OBJ DATA Labs CBC & Chem 7: 09/07/20 05:45 09/07/20 05:45 Labs: Abnormal Lab Results 09/07/20 09/07/20 09/06/20 05:45 05:45 05:12 RBC 3.92 L Hgb 11.0 L Hct 35.9 L MCHC 30.6 L RDW 14.8 H MPV 10.7 H Carbon Dioxide 35 H 34 H Anion Gap 4.0 L 5.0 L Calcium 8.5 L 8.2 L Phosphorus 2.4 L 2.2 L Albumin 2.9 L 2.9 L Globulin 4.6 H 4.0 H Albumin/Globulin Ratio 0.6 L 0.7 L 09/06/20 05:12 RBC 3.69 L Hgb 10.4 L Hct 33.6 L MCHC RDW 14.6 H MPV 10.6 H Carbon Dioxide Anion Gap Calcium Phosphorus Albumin Globulin Albumin/Globulin Ratio Meds: Medications Acetaminophen (Acetaminophen 325 Mg Tablet) 650 mg PO Q4-6HP PRN; Protocol PRN Reason: Per Pain Protocol/Fever > 101 Last Admin: 09/07/20 20:51 Dose: 650 mg Documented by: Albuterol/Ipratropium (Ipratropium/Albuterol 3 Ml Ampul.Neb) 3 ml NEB Q4HP PRN PRN Reason: wheezing Last Admin: 09/08/20 13:28 Dose: 3 ml Documented by: Allopurinol (Allopurinol 100 Mg Tablet) 200 mg PO DAILY [facility] Last Admin: 09/08/20 08:33 Dose: 200 mg Documented by: Bisacodyl (Bisacodyl 10 Mg Supp.Rect) 10 mg [place] Q2-3DAYS PRN PRN Reason: Constipation Budesonide (Budesonide 0.5 Mg/2 Ml Ampul.Neb) 0.5 mg NEB Q12 PRN PRN Reason: Wheezing Cetirizine HCl (Cetirizine 10 Mg Tablet) 10 mg PO Q8HP PRN PRN Reason: Allergy Symptoms Docusate Sodium (Docusate Sodium 100 Mg Capsule) 100 mg PO BID [facility] Last Admin: 09/08/20 08:34 Dose: 100 mg Documented by: Doxazosin Mesylate (Doxazosin 4 Mg Tablet) 4 mg PO DAILY [facility] Last Admin: 09/08/20 08:33 Dose: 4 mg Documented by: Furosemide (Furosemide 40 Mg Tablet) 40 mg PO BIDD [facility] Last Admin: 09/08/20 08:32 Dose: 40 mg Documented by: Heparin Sodium (Porcine) (Heparin 5,000 Unit/Ml Vial) 5,000 unit SQ Q12 [facility] Last Admin: 09/08/20 08:34 Dose: 5,000 unit Documented by: Hydralazine HCl (Hydralazine 20 Mg/Ml Vial) 10 mg IV Q4-6HP PRN PRN Reason: Hypertension Acetaminophen (Ofirmev) 650 mg in 65 mls @ 130 mls/hr IV Q6HP PRN; Protocol PRN Reason: Per Pain Protocol/Fever > 101 Last Infusion: 09/05/20 23:52 Dose: Infused Documented by: Magnesium Sulfate (Magnesium Sulfate) 2 gm in 50 mls @ 50 mls/hr IV UD PRN PRN Reason: MG = or < 1.7 Last Infusion: 09/05/20 18:00 Dose: Infused Documented by: Potassium Chloride 40 meq/ (Dextrose) 520 mls @ 130 mls/hr IV UD PRN PRN Reason: K+ = or < 3.5 Iron Carb/Multivit/[employer]/Folic Acid (Multivit,Ther Iron,Ca,Fa & Min 1 Tablet) 1 tab PO DAILY [facility] Last Admin: 09/08/20 08:34 Dose: 1 tab Documented by: Lisinopril (Lisinopril 2.5 Mg Tablet) 2.5 mg PO DAILY [facility] Last Admin: 09/08/20 08:31 Dose: 2.5 mg Documented by: Melatonin (Melatonin 3 Mg Tablet) 3 mg PO HSP PRN PRN Reason: Insomnia Metoprolol Succinate (Metoprolol Succinate 25 Mg Tab.Xl.24h) 12.5 mg PO DAILY [facility] Last Admin: 09/08/20 08:31 Dose: 12.5 mg Documented by: Metoprolol Tartrate (Metoprolol Tartrate 5 Mg/5 Ml Vial) 5 mg IV Q5M PRN PRN Reason: Heart Rate > 140 bpm Nitroglycerin (Nitroglycerin 0.4 Mg Tab.Subl) 0.4 mg SL Q5M PRN PRN Reason: Chest Pain Ondansetron HCl (Ondansetron 4 Mg Odt Tablet) 4 mg SL Q4-6HP PRN; Protocol PRN Reason: Nausea And Vomiting Ondansetron HCl (Ondansetron 4 Mg/2 Ml Vial) 4 mg IV Q4-6HP PRN; Protocol PRN Reason: Nausea And Vomiting Fluticasone- Umeclidin-Vilanter [ Trelegy Ellipta] Inhaler 1 dose INH DAILY [facility] Last Admin: 09/08/20 14:17 Dose: 1 dose Documented by: Polyethylene Glycol (Polyethylene Glycol 3350 17 Gm Packet) 17 gm PO DAILYP PRN PRN Reason: Constipation Potassium Chloride (Potassium Chloride 10 Meq Tablet) 20 meq PO QAC [facility] Last Admin: 09/08/20 08:33 Dose: 20 meq Documented by: Senna/Docusate Sodium (Sennosides/Docusate Sodium 1 Tab Tablet) 1 tab PO [facility] Last Admin: 09/07/20 20:52 Dose: Not Given Documented by: Simethicone (Simethicone 80 Mg Tab.Chew) 80 mg CHEWED BID [facility] Last Admin: 09/08/20 08:39 Dose: 80 mg Documented by: Sitagliptin Phosphate (Sitagliptin 100 Mg Tablet) 100 mg PO DAILY [facility] Last Admin: 09/08/20 08:38 Dose: 100 mg Documented by: Sodium Chloride (0.9 % Sodium Chloride 10 Ml Syringe) 10 ml IV Q8 [facility] Last Admin: 09/08/20 14:18 Dose: Not Given Documented by: Theophylline (Theophylline Anhydrous 100 Mg Tab.Sr.12h) 300 mg PO BID [facility] Last Admin: 09/08/20 08:39 Dose: 300 mg Documented by: Trazodone HCl (Trazodone Hcl 50 Mg Tablet) 50 mg PO QHS [facility] Last Admin: 09/07/20 20:51 Dose: 50 mg Documented by: Trazodone HCl (Trazodone Hcl 50 Mg Tablet) 50 mg PO HSP PRN PRN Reason: Insomnia ABG Interpretation ABG results: 09/02/20 20:03 ABG Methemoglobin 0.3 L VBG pH 7.43 H VBG pCO2 47.8 VBG pO2 46.3 H VBG HCO3 30.7 H VBG Total CO2 32.2 H VBG O2 Saturation 78.5 H VBG Base Excess 6 H A/P Assessment and plan (1) Congestive heart failure: Status: Acute Qualifiers: Heart failure chronicity: acute Heart failure type: unspecified Qualified Code(s): I50.9 - Heart failure, unspecified (2) Hypoxia: Status: Acute (3) Anemia: Status: Acute Qualifiers: Anemia type: unspecified type Qualified Code(s): D64.9 - Anemia, unspecified Narrative A/P Narrative: 1. Acute on chronic respiratory failure secondary to CHF exacerbation: Medically ready to be discharged. Now patient prefer PT, but wants more time to think about it before finalizing it. He wants to stay here and readdress the issue tomorrow Achieve spo2 >=92% Lasix 40mg PO BID Metoprolol Lisinopril Trelegy Ellipta 2D echocardiogram showing LVEF 60-65%, no evidence of diastolic dysfunction. Moderate mitral regurgitation 2. Pleural effusion: Resolved as seen by repeat CXR 3. Right upper lobe infiltrate: Hold antibiotics as there is normal WBC level, absence of fever. Respiratory status clinically improving. Thus, hold antibiotics therapy. Continue aspiratory precautions 4. T2DM: Januvia Diabetic diet 5. Anemia: cbc w/ auto diff in the AM to trend H/H, transfuse pRBC if hemoglobin <7.0, active bleeding, or if patient becomes symptomatic from anemia Time Spent With Patient Time: Total time spent is greater than 50% in coordination of care (as documented) at patient's floor/unit and/or counseling patient: Total time spent with greater than 50% in coordination of care (as documented) at patient's floor/unit and/or counseling patient:: 15 - 24 minutes QUALITY VTE Deep Vein Thrombosis/Pulmonary Embolism Present on Admission: No
[2020-09-08] MEDS: SENNOSIDES/DOCUSATE SODIUM 1 TAB TABLET PO SCH (19:57)
[2020-09-08] MEDS: traZODone HCL 50 MG TABLET PO SCH (21:22)
[2020-09-08] MEDS: ACETAMINOPHEN 325 MG TABLET PO PRN (21:22)
[2020-09-09] MEDS: ACETAMINOPHEN 325 MG TABLET PO PRN (04:28)
[2020-09-09] MEDS: 0.9 % SODIUM CHLORIDE 10 ML SYRINGE IV SCH (05:50)
[2020-09-09] MEDS: Fluticasone-Umeclidin-Vilanter [Trelegy Ellipta] Inhaler INH SCH ×2 (07:40→11:40)
[2020-09-09] MEDS: IPRATROPIUM/ALBUTEROL 3 ML AMPUL.NEB NEB PRN (07:40)
[2020-09-09] MEDS: SIMETHICONE 80 MG TAB.CHEW CHEWED SCH (08:10)
[2020-09-09] MEDS: HEPARIN 5,000 UNIT/ML VIAL SQ SCH (08:10)
[2020-09-09] MEDS: LISINOPRIL 2.5 MG TABLET PO SCH (08:11)
[2020-09-09] MEDS: THEOPHYLLINE ANHYDROUS 100 MG TAB.SR.12H PO SCH (08:11)
[2020-09-09] MEDS: sitaGLIPtin 100 MG TABLET PO SCH (08:12)
[2020-09-09] MEDS: FUROSEMIDE 40 MG TABLET PO SCH (08:12)
[2020-09-09] MEDS: DOCUSATE SODIUM 100 MG CAPSULE PO SCH (08:13)
[2020-09-09] MEDS: DOXAZOSIN 4 MG TABLET PO SCH (08:13)
[2020-09-09] MEDS: MULTIVIT,THER IRON,CA,FA & MIN 1 TABLET PO SCH (08:13)
[2020-09-09] MEDS: POTASSIUM CHLORIDE 10 MEQ TABLET PO SCH (08:13)
[2020-09-09] MEDS: METOPROLOL SUCCINATE 25 MG TAB.XL.24H PO SCH (08:13)
[2020-09-09] MEDS: ALLOPURINOL 100 MG TABLET PO SCH (08:14)
--- NOTE | 2020-09-09 13:40 | Discharge Summary ---
Discharge Provider Provider Patient information: Note initiated : 09/09/20 at 1:35 pm Service Date, if different from initiated Date: [] Patient: Jose Alberto Henderson 80 y/o M admitted on 09/02/20 for weakness, anxiety, SOB. Chief Complaint: [CHF exacerbation] Overnight: no major overnight events. Date of admission: 09/02/20 23:03 Discharge date: 09/09/20 Primary care physician: Jyoti Angela Consults: 09/02/20 Consult to Physician [CONS] Stat Comment: Consulting Provider: Greg Prado Reason For Exam: Physician to Consult 09/07/20 14:22 Consult to Physician [CONS] Routine Comment: SNF referral Consulting Provider: [facility] Reason For Exam: Physician to Consult Discharge Meds Discharge Medications Home Medications allopurinol 200 mg PO DAILY 09/03/20 [History Confirmed 09/03/20 Last Taken Unknown] doxazosin 4 mg PO DAILY 09/03/20 [History Confirmed 09/03/20 Last Taken Unknown] [id number]-[id number] [Trelegy Ellipta] 1 inh INHALATION DAILY 09/03/20 [History Confirmed 09/03/20 Last Taken Unknown] furosemide 40 mg PO BID 09/03/20 [History Confirmed 09/03/20 Last Taken Unknown] levofloxacin 250 mg PO DAILY 09/03/20 [History Confirmed 09/03/20 Last Taken Unknown] potassium chloride 20 meq PO DAILY 09/03/20 [History Confirmed 09/03/20 Last Taken Unknown] sitagliptin [Januvia] 100 mg PO DAILY 09/03/20 [History Confirmed 09/03/20 Last Taken Unknown] theophylline 300 mg PO BID 09/03/20 [History Confirmed 09/03/20 Last Taken Unknown] trazodone 50 mg PO QHS 09/03/20 [History Confirmed 09/03/20 Last Taken Unknown] COURSE Hospital Course Hospital course: Patient was admitted on 09/02/20 for acute respiratory failure secondary to CHF exacerbation. 2D echocardiogram showed LVEF 60-65% without diastolic dysfunction. Found to have moderate mitral regurgitation instead. Supplemental oxygen, diuretics (Lasix first IV then PO), Metoprolol, Lisinopril were all provided for symptoms relief as well as control for the heart failure. Fluid restriction, daily weigh, and strict intake and output measurements were also taken. By 09/09/20, patient had reached clinical stability and the decision was thus made to discharge him. Discharge diagnosis: CHF exacerbation Time Spent with Patient Time attestation: Total time spent providing and/or coordinating discharge services: Time spent: Less than 30 minutes EXAM Constitutional Vitals: Temp Pulse Resp BP Pulse Ox 36.6 C 66 15 89/55 97 09/09/20 12:00 09/09/20 12:00 09/09/20 12:00 09/09/20 12:00 09/09/20 12:00 Discharge Plan Patient/Caregiver Discharge Instructions Instructions: Heart Failure (DC) Prescriptions: No Action furosemide 40 mg tablet 40 mg PO BID RF: 0 trazodone 50 mg tablet 50 mg PO QHS RF: 0 potassium chloride 10 mEq tablet extended release 20 meq PO DAILY RF: 0 allopurinol 100 mg tablet 200 mg PO DAILY RF: 0 theophylline 300 mg tablet extended release 12 hr 300 mg PO BID RF: 0 doxazosin 4 mg tablet 4 mg PO DAILY RF: 0 levofloxacin 500 mg tablet 250 mg PO DAILY RF: 0 Januvia 100 mg tablet 100 mg PO DAILY RF: 0 Trelegy Ellipta 100-62.5-25 mcg blister with device 1 inh INHALATION DAILY RF: 0 Follow Up Plan Disposition: [facility] ([facility]) Discharge Orders: Discharge Order (Routine); Ordered 09/09/20 Ordered By: Rios MCDERMOTT VTE Deep Vein Thrombosis/Pulmonary Embolism Present on Admission: No
== END 2020-09-09 13:28 | disposition swing bed (61) | DRG 291 ==
LOC: ICU 17:10 → ED 17:10 → OBSVTOIN 23:03 → ICU 23:17 → MEDSUR 09-04 11:10
PROVIDERS: ADMIT Internal Medicine; ATTEND Internal Medicine